=== PATIENT | female | born 1970 | race Caucasian/White ===

== ENCOUNTER → 2020-10-10 10:54 | Outpatient (CLI) | payer OTHER, MEDICAID, SELFPAY ==
[2020-10-10 13:49] LABS: Amphetamine Urine VISTA NEGATIVE (<1000 ng/mL); Barbiturate Urine VISTA POSITIVE (< 200 ng/mL); Benzodiazepine Urine VISTA NEGATIVE (< 200 ng/mL); Cocaine Urine VISTA NEGATIVE (< 300 ng/mL); Ecstacy Urine VISTA POSITIVE (< 500 ng/mL); Methadone Urine VISTA NEGATIVE (< 300 ng/mL); PCP Urine VISTA NEGATIVE (< 25 ng/mL); THC Urine VISTA NEGATIVE (< 50 ng/mL); Vista UDS pH Range 5
== END ==
PROVIDERS: PCP Internal Medicine; Referring Provider Anesthesiology Pain Medicine; Visit Provider Anesthesiology Pain Medicine
DX: F11.20 Opioid dependence, uncomplicated (principal)
CPT/HCPCS: 80307

== ENCOUNTER → 2021-06-19 10:03 | Outpatient (CLI) | payer OTHER, MEDICARE, SELFPAY ==
[2021-06-19 12:02] LABS: Amphetamine Urine VISTA NEGATIVE (<1000 ng/mL); Barbiturate Urine VISTA NEGATIVE (< 200 ng/mL); Benzodiazepine Urine VISTA NEGATIVE (< 200 ng/mL); Cocaine Urine VISTA NEGATIVE (< 300 ng/mL); Ecstacy Urine VISTA NEGATIVE (< 500 ng/mL); Methadone Urine VISTA NEGATIVE (< 300 ng/mL); PCP Urine VISTA NEGATIVE (< 25 ng/mL); THC Urine VISTA NEGATIVE (< 50 ng/mL); Vista UDS pH Range 8
== END ==
LOC: LAB 10:09
PROVIDERS: PCP Family Medicine; Referring Provider Anesthesiology Pain Medicine; Visit Provider Anesthesiology Pain Medicine
DX: M54.16 Radiculopathy, lumbar region (principal); F11.20 Opioid dependence, uncomplicated
CPT/HCPCS: 80307

== ENCOUNTER 2021-08-17 13:00 | Outpatient (CLI) | payer OTHER, MEDICARE, SELFPAY ==
[2021-08-17 14:14] LABS: Amphetamine Urine VISTA NEGATIVE (<1000 ng/mL); Barbiturate Urine VISTA POSITIVE (< 200 ng/mL); Benzodiazepine Urine VISTA NEGATIVE (< 200 ng/mL); Cocaine Urine VISTA NEGATIVE (< 300 ng/mL); Ecstacy Urine VISTA NEGATIVE (< 500 ng/mL); Methadone Urine VISTA NEGATIVE (< 300 ng/mL); PCP Urine VISTA NEGATIVE (< 25 ng/mL); THC Urine VISTA NEGATIVE (< 50 ng/mL); Vista UDS pH Range 7
== END 2021-08-17 23:59 | disposition home or self-care (01) ==
PROVIDERS: PCP Family Medicine; Referring Provider Anesthesiology Pain Medicine; Visit Provider Anesthesiology Pain Medicine
DX: F11.20 Opioid dependence, uncomplicated (principal)
CPT/HCPCS: 80307

== ENCOUNTER → 2022-02-01 | Outpatient (CLI) | payer OTHER, MEDICARE, SELFPAY ==
[2022-02-01 13:08] LABS: Amphetamine Urine VISTA NEGATIVE (<1000 ng/mL); Barbiturate Urine VISTA POSITIVE (< 200 ng/mL); Benzodiazepine Urine VISTA NEGATIVE (< 200 ng/mL); Cocaine Urine VISTA NEGATIVE (< 300 ng/mL); Ecstacy Urine VISTA POSITIVE (< 500 ng/mL); Methadone Urine VISTA NEGATIVE (< 300 ng/mL); PCP Urine VISTA NEGATIVE (< 25 ng/mL); THC Urine VISTA NEGATIVE (< 50 ng/mL); Vista UDS pH Range 6
== END | disposition home or self-care (01) ==
LOC: LAB 11:53
PROVIDERS: PCP Family Medicine; Referring Provider Anesthesiology Pain Medicine; Visit Provider Anesthesiology Pain Medicine
DX: F11.20 Opioid dependence, uncomplicated (principal)
CPT/HCPCS: 80307

== ENCOUNTER 2024-06-02 15:03 | Inpatient (IN) | payer OTHER, MEDICARE, MEDICAID, SELFPAY ==
[2024-06-02] VITALS (8 sets, daily range): BP systolic 92–164; BP diastolic 38–89; PULSE 78–89; RESP 14–18; TEMP 36.4–36.6; O2SAT 95–100; BMI 30.8
--- NOTE | 2024-06-02 15:12 | EKG12_ITS ---
Test Reason : FALL Blood Pressure : */* mmHG Vent. Rate : 74 BPM Atrial Rate : 74 BPM P-R Int : 166 ms QRS Dur : 76 ms QT Int : 378 ms P-R-T Axes : 32 -12 28 degrees QTcB Int : 419 ms Normal sinus rhythm Inferior infarct , age undetermined Possible Anterior infarct , age undetermined Abnormal ECG Confirmed by Onesimo Lujan ([id number]), commissioning editor CESAR LEOS ([id number]) on 06/04/2024 11:03:15 AM Referred By: Confirmed By: Onesimo Lujan
--- NOTE | 2024-06-02 15:15 | CT_ITS ---
STUDY: CT ABDOMEN AND PELVIS WITH CONTRAST REASON FOR EXAM: Female, 54 years old. bleeding from colostomy, passing clots RADIATION DOSAGE (If Supplied By Facility): CTDIvol = ( 17.19 ) mGy, DLP = ( 1260.62 ) mGycm TECHNIQUE: Transaxial images were obtained from the dome of the diaphragm to the symphysis pubis without oral contrast. IV 100mL Isovue-300 was administered. Sagittal and coronal images were reconstructed. Individualized dose optimization techniques were used for this CT. COMPARISON: None. FINDINGS: The visualized lung bases are unremarkable. The visualized portions of the heart are within normal limits. Normal liver. Nonvisualization of the gallbladder. No dilatation of extrahepatic biliary system. Slightly enlarged spleen. Normal pancreas. Normal bilateral adrenal glands. Normal right kidney. Normal left kidney. Normal visualized stomach. Retained contents in the visualized distal esophagus. Normal small intestine. Normal colon. The appendix is not visualized. Normal abdominal aorta. Normal inferior vena cava. Normal retroperitoneum. Ibarra catheter in the urinary bladder. There is a colostomy through the left anterior abdominal wall. There is a skin wound over the sacrum with subcutaneous emphysema since likely related to decubitus ulcer. Skin thickening and subcutaneous edema of the left gluteal region and the proximal left thigh posteriorly. Degenerative vertebral changes. Right SI joint fusion. Bilateral old rib fractures. CT/Abdomen/Pelvis W IV Cont ONLY IMPRESSION: There is a colostomy through the left anterior abdominal wall. There is a skin wound over the sacrum with subcutaneous emphysema since likely related to decubitus ulcer. Skin thickening and subcutaneous edema of the left gluteal region and the proximal left thigh posteriorly. Enlarged spleen. Electronically Signed: Juan Cortes DO at 17:37 EST ,
--- NOTE | 2024-06-02 15:31 | EX.ED.DYSGE1 ---
HPI History of Present Illness Chief Complaint: GI Bleed Narrative Narrative: Patient is a 54-year-old female with past medical history of colostomy, chronic sacral wound, right partial foot amputation, left below-knee amputation who presents to the emergency department the chief complaint of blood coming out of her colostomy. States that yesterday she noted that she was passing clots out of her colostomy site and has been worsening therefore she came here for the valuation management. Patient states that this bright red nature and denies any blood thinning medications. Patient states that she was recently at [facility] and they wanted to admit her for low blood count however they wanted to observe her and she ultimately decided against staying for an observation stay and went home. Patient denies any sick contacts. Patient denies any abdominal pain. [facility] Medical History (Updated 06/02/24 @ 22:[address] Ashu Walters, ) Decubitus ulcer Hypertension Asthma Insomnia Crohn disease Hypothyroid Diabetes Home Medications ?Medication ?Instructions ?Recorded ?Last Taken ?Type Lactobacillus acidophilus 1 1,000 mmu cells PO DAILY 06/02/24 06/01/24 History billion cell capsule acetaminophen 325 mg tablet 650 mg PO Q6H PRN pain 06/02/24 Unknown History adalimumab 40 mg/0.4 mL 40 mg subcut Q14D 06/02/24 05/19/24 History subcutaneous pen kit (Humira(CF) Pen) albuterol sulfate 2.5 mg/0.5 mL 2.5 mg inhalation Q4H PRN 06/02/24 Unknown History solution for nebulization shortness of breath or wheezing albuterol sulfate 90 mcg/actuation 1 puff inhalation Q4H PRN 06/02/24 Unknown History aerosol inhaler shortness of breath or wheezing alprazolam 0.5 mg tablet 0.5 mg PO DAILY 06/02/24 06/01/24 History amitriptyline 100 mg tablet 100 mg PO QHS 06/02/24 06/01/24 History ascorbic acid (vitamin C) 500 mg 500 mg PO DAILY 06/02/24 06/01/24 History tablet (Vitamin C) atorvastatin 80 mg tablet 80 mg PO DAILY 06/02/24 06/01/24 History buprenorphine 10 mcg/hour weekly 1 patch topical TU 06/02/24 05/26/24 History transdermal patch colestipol 1 gram tablet 2 g PO BID 06/02/24 06/01/24 History cyclosporine 0.05 % eye drops in a 1 drp ophthalmic (eye) Q12H 06/02/24 06/01/24 History dropperette (Restasis) epinephrine 0.3 mg/0.3 mL 0.3 mg IM PRN PRN anaphylaxis 06/02/24 Unknown History injection, auto-injector ergocalciferol (vitamin D2) 1,250 1,250 mcg PO TU 06/02/24 05/26/24 History mcg (50,000 unit) capsule escitalopram oxalate 20 mg tablet 20 mg PO DAILY 06/02/24 06/01/24 History famotidine 20 mg tablet 40 mg PO BID 06/02/24 06/01/24 History fluticasone furoate 200 1 ea inhalation DAILY 06/02/24 06/01/24 History mcg-vilanterol 25 mcg/dose inhalation powder (Breo Ellipta) folic acid 1 mg tablet 1 mg PO DAILY 06/02/24 06/01/24 History furosemide 40 mg tablet 40 mg PO DAILY PRN edema 06/02/24 Unknown History ibuprofen 800 mg tablet 800 mg PO TID PRN pain 06/02/24 Unknown History insulin glargine U-300 conc 300 44 unit subcut DAILY 06/02/24 06/01/24 History unit/mL (1.5 mL) subcutaneous pen (Toujeo SoloStar U-300 Insulin) insulin lispro 100 unit/mL 1 sliding scale dose subcut TIDCM 06/02/24 06/01/24 History subcutaneous pen (Humalog KwikPen (U-100) Insulin) levetiracetam 1,000 mg tablet 1,000 mg PO BID 06/02/24 06/01/24 History levothyroxine 200 mcg tablet 200 mcg PO DAILY 06/02/24 06/01/24 History lidocaine 5 % topical patch 1 patch topical DAILY 06/02/24 06/01/24 History loperamide 2 mg tablet 2 mg PO TID PRN loose stool 06/02/24 Unknown History magnesium oxide 400 mg (241.3 mg 400 mg PO DAILY 06/02/24 06/01/24 History magnesium) tablet metformin 500 mg tablet,extended 500 mg PO BID 06/02/24 06/01/24 History release 24 hr nitroglycerin 0.4 mg sublingual 0.4 mg sublingual Q5M PRN chest 06/02/24 Unknown History tablet pain nystatin 100,000 unit/gram topical 1 applic topical TID 06/02/24 06/01/24 History powder (Nystop) pantoprazole 40 mg tablet,delayed 40 mg PO BID 06/02/24 06/01/24 History release pregabalin 225 mg capsule 225 mg PO TID 06/02/24 06/01/24 History primidone 50 mg tablet 50 mg PO BID 06/02/24 06/01/24 History promethazine 25 mg tablet 25 mg PO Q8H PRN nausea and 06/02/24 Unknown History vomiting propranolol 10 mg tablet 10 mg PO DAILY 06/02/24 06/01/24 History quetiapine 100 mg tablet 100 - 200 mg PO QHS 06/02/24 06/01/24 History ropinirole 4 mg tablet 4 mg PO QHS 06/02/24 06/01/24 History scopolamine base 1 mg over 3 days 1 patch topical Q3D 06/02/24 05/30/24 History transdermal patch semaglutide 2 mg/dose (8 mg/3 mL) 2 mg subcut TU 06/02/24 05/26/24 History subcutaneous pen injector (Ozempic) sucralfate 1 gram tablet 1 g PO TID 06/02/24 06/01/24 History sumatriptan succinate 100 mg tablet 100 mg PO UD 06/02/24 Unknown History tizanidine 4 mg tablet 4 mg PO 4X/DAY PRN muscle 06/02/24 Unknown History spasticity topiramate 50 mg tablet (Topamax) 50 mg PO BID 06/02/24 06/01/24 History Allergy/AdvReac Type Severity Reaction Status Date / Time daptomycin Allergy Severe Anaphylaxis Verified 06/02/24 15:10 Cephalosporins Allergy Intermediate Rash Verified 06/02/24 15:10 bee venom protein (honey Allergy Rash Verified 06/02/24 15:10 bee) (bee sting) Social History Smoking Status: Never smoker ROS ROS ED ROS Narrative Constitutional: Denies any fevers, chills, headaches, lightheadedness, dizziness Cardiovascular: Denies chest pain or palpitations Respiratory: Denies cough or wheezing shortness of breath Abdomen: Complains of bleeding coming from her colostomy site as noted above denies nausea vomiting and states that otherwise she is having adequate output out of her colostomy site : Complains of decreased urine output into Ibarra catheter Neurological: Denies numbness, weakness or tingling Musculoskeletal: Denies back pain Skin: Denies rashes or lesions EXAM Physical Exam Narrative Exam Narrative: General: Patient lying in bed rest comfortably did not appear to be acute distress Head: Atraumatic, normocephalic Eyes: PERRL bilateral, EOMI bilateral, no conjunctival injection noted Neck: Soft, supple, trachea midline Cardiovascular: Regular rate and rhythm no murmurs gallops rubs noted Respiratory: Clear to auscultation bilaterally no rales rhonchi or wheeze noted Abdomen: Soft, nondistended, nontender to palpation, colostomy site appears pink and moist, blood noted in the colostomy bag Sacrum: Patient has chronic sacral wound noted with foul smell coming from this no active drainage noted. Extremities: +5/5 strength noted in the bilateral upper extremities, patient has above-knee amputation on the left and a partial imitation of her right foot. Neurological: Patient following commands knew that she was at [facility] years 2023 Skin: Warm, dry, chronic sacral wound noted Const Vital Signs: 06/02/24 15:04 06/02/24 15:05 06/02/24 17:04 Temperature 97.5 F L Temperature Source Oral Pulse Rate 88 78 78 Respiratory Rate 15 18 16 Blood Pressure 119/84 H 119/71 164/76 H Blood Pressure Mean 95 87 105 Pulse Ox 98 100 98 Oxygen Delivery Method Room Air Room Air Room Air 06/02/24 19:00 06/02/24 19:35 06/02/24 21:00 Temperature 98 F Temperature Source Pulse Rate 82 82 83 Respiratory Rate 16 16 16 Blood Pressure 122/89 H 122/89 H 116/38 L Blood Pressure Mean 100 100 64 Pulse Ox 99 99 95 Oxygen Delivery Method Room Air Room Air MDM MDM MDM Narrative Medical decision making narrative: Patient is a 54-year-old female who presents to the emergency department with a chief complaint of bleeding coming from her colostomy site. Patient will have a workup performed here on the differential diagnose includes but not limited to GI bleed, ischemic colitis although do feel this less likely as she has no abdominal pain associated with this, colitis. Once workup is obtained reviewed she will be reevaluated. Patient CBC reviewed and showed no evidence leukocytosis white blood count normal 8.5, hemoglobin 7.7, platelet count was noted be 378. Patient sodium normal at 143, potassium was 3.4, creatinine normal at 0.94. Patient lactic acid was noted to be 2.2 with a repeat lactic of 2.1. Patient's AST and ALT were 39 and 30 respectively. Patient's urinalysis reviewed and showed 500 leukocyte esterase 50-100 white cells and 2+ bacteria this will be sent for culture she is chronically have a Ibarra catheter will treat until culture results return. Patient's CT abdomen pelvis with IV contrast reviewed showed colostomy through the left anterior abdominal wall. Skin wound over the sacrum with subcutaneous emphysema since likely related decubitus ulcer. Skin thickening and subcutaneous edema in the left gluteal region and proximal left thigh posteriorly. Large spleen. Patient's EKG reviewed and independently turbid by myself which showed sinus rhythm rate of 74 bpm. At this point time given the patient's persistent bleeding abdominal pain through her colostomy site do believe she will warrant admission will discuss case with gastroenterology and general surgery. Called and discussed case Dr. Fuentes who states that he is happy to see the patient in consult. I called and spoke with Dr. Duran general surgery and states that he would recommend transfer as if she needs revision of her colostomy site given her history of Crohn's she would likely need colorectal surgery. I called and discussed case with [facility] as the patient preferred to go there and the hospitalist was in agreement with taking her however if the general surgeon on-call there was comfortable with taking the patient as well. I spoke with Dr. Barroso hospitalist and then I spoke with Dr. Garcia general surgery who states that if this would become a surgical issue she does not want to do colorectal surgery and is requesting transfer to [facility] Instead. I called and discussed case with [facility] Hospitalist Dr. Bahena who accept the patient for transfer. Transfer line did notify me that the patient will not get a bed tonight therefore the patient case will be discussed with hospitalist for admission here and then transfer once a bed is available. Dr. Dong states that he wants patient be kept in the ER for 6 hours prior to admission to the hospital. We did notify him that she will not be getting a hospital bed tonight and questionably not tomorrow either. Given the patient does have a foul smell coming from her wound from her sacrum we will give her antibiotics vancomycin and Zosyn is also covered her urine. Patient case will be signed out to oncoming provider see their note for ultimate details on admission versus bed availability transferred to [facility]. Lab Data Labs: Laboratory Results - last 24 hr 06/02/24 06/02/24 06/02/24 15:32 17:40 20:35 WBC 8.5 RBC 3.49 L Hgb 7.7 L Hct 26.8 L MCV 76.8 L MCH 22.1 L MCHC 28.7 L RDW Std Deviation 44.6 H RDW Coeff of Gerardo 16.4 H Plt Count 378 MPV 9.2 Immature Gran % (Auto) 0.800 Neut % (Auto) 64.5 Lymph % (Auto) 26.4 [place] % (Auto) 5.8 Eos % (Auto) 2.0 Baso % (Auto) 0.5 Absolute Neuts (auto) 5.5 Absolute Lymphs (auto) 2.25 Nucleated RBC % 0 Sodium 143 Potassium 3.4 L Chloride 114 H Carbon Dioxide 23.0 Anion Gap 6 BUN 11 Creatinine 0.94 Estim Creat Clear Calc 77.54 Est GFR (MDRD) Af Amer 80 Est GFR (MDRD) Non-Af 66 BUN/Creatinine Ratio 11.7 Glucose 89 Lactic Acid 2.2 H* 2.1 H* Calcium 8.8 Total Bilirubin 0.20 AST 39 H ALT 30 Alkaline Phosphatase 320 H Total Protein 7.5 Albumin 2.1 L Globulin 5.4 H Albumin/Globulin Ratio 0.4 L Urine Color Yellow Urine Clarity Cloudy Urine pH 6.5 Ur Specific [place] 1.010 Urine Protein 30 H Urine Glucose (UA) Normal Urine Ketones Negative Urine Occult Blood 50 H Urine Nitrite Negative Urine Bilirubin Negative Urine Urobilinogen Normal Ur Leukocyte Esterase 500 H Urine RBC 5-10 SEEN Urine WBC 50-100 SEEN Ur Squamous Epith Cells 0-5 SEEN Urine Bacteria 2+ Urine Mucus 0 SEEN Blood Type B POSITIVE Antibody Screen NEGATIVE Radiography Diagnostic Testing: Clinical Impression(s) from Imaging Studies Abdomen/Pelvis CT 06/02/24 15:15 IMPRESSION: There is a colostomy through the left anterior abdominal wall. There is a skin wound over the sacrum with subcutaneous emphysema since likely related to decubitus ulcer. Skin thickening and subcutaneous edema of the left gluteal region and the proximal left thigh posteriorly. Enlarged spleen. Electronically Signed: Juanjeffrey Cortes DO at 17:37 EST , Discharge Plan Triage Chief Complaint: GI Bleed Other Complaint: Wound Check ED Provider: Ashu Walters Dx/Rx/DC Orders Clinical Impression: GI (gastrointestinal bleed), Decubitus ulcer of sacral area, UTI (urinary tract infection) Prescriptions: No Action quetiapine 100 mg tablet 100 - 200 mg PO QHS alprazolam 0.5 mg tablet 0.5 mg PO DAILY escitalopram oxalate 20 mg tablet 20 mg PO DAILY propranolol 10 mg tablet 10 mg PO DAILY Ozempic 2 mg/dose (8 mg/3 mL) pen injector 2 mg subcut TU amitriptyline 100 mg tablet 100 mg PO QHS colestipol 1 gram tablet 2 g PO BID buprenorphine 10 mcg/hour patch weekly 1 patch topical TU ibuprofen 800 mg tablet 800 mg PO TID PRN (Reason: pain) lidocaine 5 % adhesive patch,medicated 1 patch topical DAILY pregabalin 225 mg capsule 225 mg PO TID tizanidine 4 mg tablet 4 mg PO 4X/DAY PRN (Reason: muscle spasticity) insulin glargine U-300 conc [Toujeo SoloStar U-300 Insulin] 300 unit/mL (1.5 mL) insulin pen 44 unit subcut DAILY insulin lispro [Humalog KwikPen Insulin] 100 unit/mL insulin pen 1 sliding scale dose subcut TIDCM Protocol: 6. Sliding Scale Insulin Custom Condition: mg/dl range Dose/Route: Number of Units Condition: 151-200 Dose/Route: 2 Condition: 201-250 Dose/Route: 4 Condition: 251-300 Dose/Route: 6 Condition: 301-350 Dose/Route: 8 Condition: 351-400 Dose/Route: 10 Protocol Text: Custom Sliding Scale Rx Instructions: TAKE 12 UNITS WITH BREAKFAST, 10 UNITS WITH LUNCH, AND 12 UNITS WITH DINNER PLUS SLIDING SCALE. MAX DAILY DOSE 60 UNITS Lactobacillus acidophilus 1 billion cell capsule 1,000 mmu cells PO DAILY primidone 50 mg tablet 50 mg PO BID famotidine 20 mg tablet 40 mg PO BID pantoprazole 40 mg tablet,delayed release (DR/EC) 40 mg PO BID scopolamine base 1 mg over 3 days patch 3 day 1 patch topical Q3D atorvastatin 80 mg tablet 80 mg PO DAILY albuterol sulfate 90 mcg/actuation HFA aerosol inhaler 1 puff inhalation Q4H PRN (Reason: shortness of breath or wheezing) ropinirole 4 mg tablet 4 mg PO QHS Humira(CF) Pen 40 mg/0.4 mL pen injector kit 40 mg subcut Q14D ascorbic acid (vitamin C) [Vitamin C] 500 mg tablet 500 mg PO DAILY epinephrine 0.3 mg/0.3 mL auto-injector 0.3 mg IM PRN PRN (Reason: anaphylaxis) fluticasone furoate-vilanterol [Breo Ellipta] 200-25 mcg/dose blister with device 1 ea inhalation DAILY ergocalciferol (vitamin D2) 1,250 mcg (50,000 unit) capsule 1,250 mcg PO TU promethazine 25 mg tablet 25 mg PO Q8H PRN (Reason: nausea and vomiting) levothyroxine 200 mcg tablet 200 mcg PO DAILY nystatin [Nystop] 100,000 unit/gram powder 1 applic topical TID levetiracetam 1,000 mg tablet 1,000 mg PO BID acetaminophen 325 mg tablet 650 mg PO Q6H PRN (Reason: pain) folic acid 1 mg tablet 1 mg PO DAILY loperamide 2 mg tablet 2 mg PO TID PRN (Reason: loose stool) sumatriptan succinate 100 mg tablet 100 mg PO UD sucralfate 1 gram tablet 1 g PO TID magnesium oxide 400 mg (241.3 mg magnesium) tablet 400 mg PO DAILY metformin 500 mg tablet extended release 24 hr 500 mg PO BID cyclosporine [Restasis] 0.05 % dropperette 1 drp ophthalmic (eye) Q12H Patient Comments: [NO ORIGINAL SIG] Rx Instructions: BOTH EYES nitroglycerin 0.4 mg tablet, sublingual 0.4 mg sublingual Q5M PRN (Reason: chest pain) Rx Instructions: do not exceed 3 doses per episode topiramate [Topamax] 50 mg tablet 50 mg PO BID furosemide 40 mg tablet 40 mg PO DAILY PRN (Reason: edema) albuterol sulfate 2.5 mg/0.5 mL solution for nebulization 2.5 mg inhalation Q4H PRN (Reason: shortness of breath or wheezing) Primary Care Provider: Jomar Kellogg Referrals: Jomar Kellogg MD [Primary Care Provider] - Print Language: Gambian
[2024-06-02] MEDS: 0.9% Normal Saline (1000mL) 1,000 ML 999 ML IV ×2 (15:41→15:43)
[2024-06-02] MEDS: Ondansetron 4 MG/2 ML Vial IV ×2 (15:43→20:12)
[2024-06-02] MEDS: Morphine 4 MG/ML Syringe IV ×2 (15:43→17:34)
[2024-06-02 15:51] LABS: Absolute Lymphocyte Count 2.25 X10^3/uL (0.83-4.51); Absolute Neutrophil Count 5.5 X10^3/uL (2.0-7.7); Basophil# 0.04 X10^3/uL; Basophil% 0.5 % (0-1); Eosinophil# 0.17 X10^3/uL; Hematocrit 26.8 % (37-47); Hemoglobin 7.7 g/dL (12.0-15.0); Lymphocyte # 2.25 X10^3/ul (0.83-4.51); Lymphocyte % 26.4 % (19-41); Mean Corp Hgb Conc 28.7 g/dL (32-36); Mean Corpuscular Hgb 22.1 pg (27.0-32.0); Mean Corpuscular Volume 76.8 fL (81-99); Mean Platelet Vol. 9.2 fl (6.2-12.0); Monocyte# 0.49 X10^3/uL; Monocyte% 5.8 % (0-10); NRBC Flagged by Analyzer 0 % (0-5); Neutrophil % 64.5 % (47-70); Platelet Count 378 K/mm3 (150-450); RBC Distribution Width CV 16.4 % (11.6-14.6); RBC Distribution Width SD 44.6 fl (35.1-43.9); Red Blood Count 3.49 M/mm3 (4.2-5.4); White Blood Count 8.5 K/mm3 (4.4-11.0)
[2024-06-02 16:31] LABS: ALB/GLOB Ratio 0.4 RATIO (0.9-2.4); AST(SGOT) 39 U/L (15-37); Alanine Aminotransfer ALT/SGPT 30 U/L (13-56); Albumin, Serum 2.1 g/dL (3.2-5.0); Alkaline Phosphatase 320 U/L (45-117); Anion Gap 6 (5-15); BUN 11 mg/dL (7-18); BUN/Creat Ratio 11.7 RATIO (10-20); Calcium,Total 8.8 mg/dL (8.5-10.1); Chloride 114 mmol/L (98-107); Creatinine, Serum 0.94 mg/dL (0.55-1.02); EST Glomerular Filtration Rate 66 mL/min (>60); Est Glom Filt Rate - Afr Amer 80 mL/min (>60); Estimated Creatinine Clearance 77.54 ml/min; Globulin 5.4 g/dL (2.2-4.2); Glucose 89 mg/dL (74-106); Potassium 3.4 mmol/L (3.5-5.1); Protein, Total 7.5 g/dL (6.4-8.2); Sodium Level 143 mmol/L (136-145)
[2024-06-02 16:32] LABS: Lactic Acid 2.2 mmol/L (0.4-1.9)
[2024-06-02 17:44] LABS: Mucous, Urine 0 SEEN /hpf (<or=2+)
[2024-06-02 18:19] LABS: Color, Urine Yellow (Yellow); Glucose, Dipstick Normal (Normal); Ketone-Dipstick Negative (Negative); Leukocyte Esterase-Dipstick 500 /ul (Negative); Nitrite-Dipstick Negative (Negative); Occult Blood-Urine 50 /ul (Negative); Protein-Dipstick 30 mg/dl (Negative); Urine Bilirubin Dipstick Negative (Negative); Urine Clarity Cloudy (Clear); Urine Urobilinogen Normal (Normal); Urine pH 6.5 (5.0 - 8.0)
[2024-06-02 19:00] LABS: Bacteria 2+ /hpf (None Seen); Red Blood Cells-Urine 5-10 SEEN /hpf (0-5); Squamous Epithelial Cells - UA 0-5 SEEN /hpf (5-10); White Blood Cells 50-100 SEEN /hpf (0-5)
[2024-06-02] MEDS: Dicyclomine 10 MG Capsule 20 MG PO (19:27)
[2024-06-02] MEDS: Pantoprazole Sodium 40 MG in 0.9% Normal Saline (100mL MB+) 100 ML 330 MG IV (19:28)
[2024-06-02 19:42] LABS: Reflex Lactate? Y
[2024-06-02] MEDS: HYDROmorphone 0.5 MG/0.5 ML SYRINGE IV (20:12)
[2024-06-02 21:20] LABS: Lactic Acid 2.1 mmol/L (0.4-1.9)
--- NOTE | 2024-06-02 22:45 | HP.PCM.HOS_ITS ---
[facility] General Date of Admission: 06/02/24 Date of Service: 06/02/24 Chief Complaint: GI Bleed. [facility] Narrative EAMON BLANCA, is a 54 F with a past medical history of essential hypertension, hyperlipidemia; on colestipol and atorvastatin, hypothyroidism, obesity; with a BMI of 30.8 this admission, DM-2; of unknown control on metformin and semaglutide plus insulin glargine 44 U sq. daily, diabetic neuropathy; on pregabalin, history of Crohn's disease; on adalimumab, history of colostomy, history of severe GERD; on pantoprazole BID and Pepcid 40 mg PO BID plus sucralfate, history of seizure disorder; on levetiracetam, topiramate and primidone, RLS; on quetiapine and ropinirole, history of asthma; on fluticasone and prn albuterol, chronic sacral wound, history of partial amputation of the Right foot, history of Left BKA, history of muscle spasms; on prn tizanidine, history migraine headaches; on prn sumatriptan, chronic dry eyes; on Restasis, depression with anxiety; on escitalopram, amitriptyline and prn alprazolam, listed allergy to daptomycin (anaphylaxis), listed allergy to cephalosporins (rash), listed allergy to bee venom protein (rash) and OA; with chronic pain on buprenorphine patch and ibuprofen 800 mg PO TID prn who presented to [facility] ER complaining of GI bleed. Ms. Blanca reports her symptoms began approximately 1 day prior to admission with blood coming out of her colostomy. She states that yesterday she noted she was passing clots from her colostomy site that have been worsening since that time so she came into the ER for further evaluation and treatment. She states the blood is bright red in nature and denies being on any blood thinning medications or anticoagulants. She denies associated fever, chills, nausea, vomiting or abdominal pain. The ER physician spoke with the stationary engineer supervisor and general surgeon on-call who recommended transfer to tertiary care center if she would need revision of her colostomy given her history of Crohn's disease she would likely need a colorectal surgeon. In the ER her CT scan of the abdomen pelvis revealed colostomy through the left anterior abdominal wall with skin wound over the sacrum with subcutaneous emphysema likely related to decubitus ulcer and skin thickening and subcutaneous edema of the Left gluteal region and left proximal thigh posteriorly along with enlarged spleen with no other acute pathologic changes noted. Due to limited bed availability patient cannot be transferred immediately and has been waiting in the ER over 6 hours and that is hospitals policy to admit patients who will be awaiting prolonged transfer will be admitted to the hospitalist service so they can be cared for until such time transfer becomes available. In the ER she was noted to have a hemoglobin of 7.7 g/dL with an elevated lactic acid of 2.1 mmol/L and mild hypokalemia of 3.4 mmol/L present on admission in addition to UA grossly positive for acute cystitis; with microscopic hematuria. She was then empirically started on IV vancomycin and IV Zosyn along with IV Protonix drip and multiple doses of IV morphine with 1 L normal saline fluid bolus. She was then admitted to the PCU for ongoing care for stay that is expected to extend beyond 2 midnights. [facility] Medical History (Updated 06/03/24 @ 00:[address] Emmanuel Graff, DO) Decubitus ulcer Hypertension Asthma Insomnia Crohn disease Hypothyroid Diabetes Home Medications ?Medication ?Instructions ?Recorded ?Last Taken ?Type Lactobacillus acidophilus 1 1,000 mmu cells PO DAILY 06/02/24 06/01/24 History billion cell capsule acetaminophen 325 mg tablet 650 mg PO Q6H PRN pain 06/02/24 Unknown History adalimumab 40 mg/0.4 mL 40 mg subcut Q14D 06/02/24 05/19/24 History subcutaneous pen kit (Humira(CF) Pen) albuterol sulfate 2.5 mg/0.5 mL 2.5 mg inhalation Q4H PRN 06/02/24 Unknown History solution for nebulization shortness of breath or wheezing albuterol sulfate 90 mcg/actuation 1 puff inhalation Q4H PRN 06/02/24 Unknown History aerosol inhaler shortness of breath or wheezing alprazolam 0.5 mg tablet 0.5 mg PO DAILY 06/02/24 06/01/24 History amitriptyline 100 mg tablet 100 mg PO QHS 06/02/24 06/01/24 History ascorbic acid (vitamin C) 500 mg 500 mg PO DAILY 06/02/24 06/01/24 History tablet (Vitamin C) atorvastatin 80 mg tablet 80 mg PO DAILY 06/02/24 06/01/24 History buprenorphine 10 mcg/hour weekly 1 patch topical TU 06/02/24 05/26/24 History transdermal patch colestipol 1 gram tablet 2 g PO BID 06/02/24 06/01/24 History cyclosporine 0.05 % eye drops in a 1 drp ophthalmic (eye) Q12H 06/02/24 06/01/24 History dropperette (Restasis) epinephrine 0.3 mg/0.3 mL 0.3 mg IM PRN PRN anaphylaxis 06/02/24 Unknown History injection, auto-injector ergocalciferol (vitamin D2) 1,250 1,250 mcg PO TU 06/02/24 05/26/24 History mcg (50,000 unit) capsule escitalopram oxalate 20 mg tablet 20 mg PO DAILY 06/02/24 06/01/24 History famotidine 20 mg tablet 40 mg PO BID 06/02/24 06/01/24 History fluticasone furoate 200 1 ea inhalation DAILY 06/02/24 06/01/24 History mcg-vilanterol 25 mcg/dose inhalation powder (Breo Ellipta) folic acid 1 mg tablet 1 mg PO DAILY 06/02/24 06/01/24 History furosemide 40 mg tablet 40 mg PO DAILY PRN edema 06/02/24 Unknown History ibuprofen 800 mg tablet 800 mg PO TID PRN pain 06/02/24 Unknown History insulin glargine U-300 conc 300 44 unit subcut DAILY 06/02/24 06/01/24 History unit/mL (1.5 mL) subcutaneous pen (Toujeo SoloStar U-300 Insulin) insulin lispro 100 unit/mL 1 sliding scale dose subcut TIDCM 06/02/24 06/01/24 History subcutaneous pen (Humalog KwikPen (U-100) Insulin) levetiracetam 1,000 mg tablet 1,000 mg PO BID 06/02/24 06/01/24 History levothyroxine 200 mcg tablet 200 mcg PO DAILY 06/02/24 06/01/24 History lidocaine 5 % topical patch 1 patch topical DAILY 06/02/24 06/01/24 History loperamide 2 mg tablet 2 mg PO TID PRN loose stool 06/02/24 Unknown History magnesium oxide 400 mg (241.3 mg 400 mg PO DAILY 06/02/24 06/01/24 History magnesium) tablet metformin 500 mg tablet,extended 500 mg PO BID 06/02/24 06/01/24 History release 24 hr nitroglycerin 0.4 mg sublingual 0.4 mg sublingual Q5M PRN chest 06/02/24 Unknown History tablet pain nystatin 100,000 unit/gram topical 1 applic topical TID 06/02/24 06/01/24 History powder (Nystop) pantoprazole 40 mg tablet,delayed 40 mg PO BID 06/02/24 06/01/24 History release pregabalin 225 mg capsule 225 mg PO TID 06/02/24 06/01/24 History primidone 50 mg tablet 50 mg PO BID 06/02/24 06/01/24 History promethazine 25 mg tablet 25 mg PO Q8H PRN nausea and 06/02/24 Unknown History vomiting propranolol 10 mg tablet 10 mg PO DAILY 06/02/24 06/01/24 History quetiapine 100 mg tablet 100 - 200 mg PO QHS 06/02/24 06/01/24 History ropinirole 4 mg tablet 4 mg PO QHS 06/02/24 06/01/24 History scopolamine base 1 mg over 3 days 1 patch topical Q3D 06/02/24 05/30/24 History transdermal patch semaglutide 2 mg/dose (8 mg/3 mL) 2 mg subcut TU 06/02/24 05/26/24 History subcutaneous pen injector (Ozempic) sucralfate 1 gram tablet 1 g PO TID 06/02/24 06/01/24 History sumatriptan succinate 100 mg tablet 100 mg PO UD 06/02/24 Unknown History tizanidine 4 mg tablet 4 mg PO 4X/DAY PRN muscle 06/02/24 Unknown History spasticity topiramate 50 mg tablet (Topamax) 50 mg PO BID 06/02/24 06/01/24 History Allergy/AdvReac Type Severity Reaction Status Date / Time daptomycin Allergy Severe Anaphylaxis Verified 06/02/24 15:10 Cephalosporins Allergy Intermediate Rash Verified 06/02/24 15:10 bee venom protein (honey Allergy Rash Verified 06/02/24 15:10 bee) (bee sting) Social History Smoking Status: Never smoker ROS ROS Narrative Review of Systems: Constitutional: Patient denies fever or chills. Eyes: Patient denies changes in vision or discharge from eyes. ENT: Patient denies runny nose, sore throat or ear pain. Resp: Patient denies shortness of breath or cough. CV: Patient denies chest pain, palpitations or heart racing. GI: Patient admits to bleeding from her colostomy site with bright red blood and clots as per HPI. She denies nausea or vomiting and is otherwise having normal output. : Patient complains of decreased urinary output and Ibarra catheter. MSK: Patient denies arthralgias or myalgias but she does admit to chronic pain. Skin: Patient has chronic sacral decubitus wound. Psych: Patient denies symptoms of uncontrolled depression or anxiety. Neuro: Patient denies headache, paresthesias or focal neurologic deficits. Allergy: Patient denies lip swelling, tongue swelling or urticaria. Hematology: Patient admits to bleeding from her colostomy site as noted above. Endocrinology: Patient denies polyuria, polydipsia or polyphagia. 14 point review of systems otherwise negative except for positives noted above in HPI. Vital Signs Vital Signs Vital Signs: 06/02/24 15:04 06/02/24 15:05 06/02/24 17:04 Temperature 97.5 F L Temperature Source Oral Pulse Rate 88 78 78 Respiratory Rate 15 18 16 Blood Pressure 119/84 H 119/71 164/76 H Blood Pressure Mean 95 87 105 Pulse Ox 98 100 98 Oxygen Delivery Method Room Air Room Air Room Air 06/02/24 19:00 06/02/24 19:35 06/02/24 21:00 Temperature 98 F Temperature Source Pulse Rate 82 82 83 Respiratory Rate 16 16 16 Blood Pressure 122/89 H 122/89 H 116/38 L Blood Pressure Mean 100 100 64 Pulse Ox 99 99 95 Oxygen Delivery Method Room Air Room Air Weight Weight: 196 lb 10.437 oz Body Mass Index (BMI) 30.8 Physical Exam Const alert, oriented x3 and no apparent distress Constitutional Narrative: Patient is obese and appears chronically ill. General Appearance: cooperative HEENT normocephalic, head/scalp atraumatic, hearing grossly normal bilaterally and moist oral mucous membranes Eyes PERRL and EOMs intact bilaterally Neck no lymphadenopathy and supple Resp normal respiratory effort, no retractions, no use of accessory muscles and clear to auscultation bilaterally Cardio regular rate and regular rhythm GI normal to inspection, nondistended, normoactive bowel sounds, soft to palpation, non-tender and non-distended GI Narrative: Blood noted in colostomy bag with colostomy site appearing pink and moist and nontender to palpation. 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 Skin Skin Narrative: Patient has a chronic sacral wound with foul smell but no active drainage coming from site at this time. Neuro oriented x3, CN's II-XII intact bilaterally, moves all extremities and no focal motor deficits Sensorium / Orientation: awake, alert, oriented to person, oriented to place and oriented to time Speech: speech normal Psych affect normal Results Medical Records Data Attestation: I reviewed the patient's medical records Lab / Micro Data Attestation: I reviewed the patient's lab results. 06/02/24 15:32 06/02/24 15:32 Labs: Laboratory Results - last 24 hr 06/02/24 15:32: WBC 8.5, RBC 3.49 L, Hgb 7.7 L, Hct 26.8 L, MCV 76.8 L, MCH 22.1 L, MCHC 28.7 L, RDW Std Deviation 44.6 H, RDW Coeff of Gerardo 16.4 H, Plt Count 378, MPV 9.2, Immature Gran % (Auto) 0.800, Neut % (Auto) 64.5, Lymph % (Auto) 26.4, [place] % (Auto) 5.8, Eos % (Auto) 2.0, Baso % (Auto) 0.5, Absolute Neuts (auto) 5.5, Absolute Lymphs (auto) 2.25, Nucleated RBC % 0, Sodium 143, P otassium 3.4 L, Chloride 114 H, Carbon Dioxide 23.0, Anion Gap 6, BUN 11, Creatinine 0.94, Estim Creat Clear Calc 77.54, Est GFR (MDRD) Af Amer 80, Est GFR (MDRD) Non-Af 66, BUN/Creatinine Ratio 11.7, Glucose 89, Lactic Acid 2.2 H*, Calcium 8.8, Total Bilirubin 0.20, AST 39 H, ALT 30, Alkaline Phosphatase 320 H, Total Protein 7.5, Albumin 2.1 L, Globulin 5.4 H, Albumin/Globulin Ratio 0.4 L, Blood Type B POSITIVE, Antibody Screen NEGATIVE 06/02/24 17:40: Urine Color Yellow, Urine Clarity Cloudy, Urine pH 6.5, Ur Specific [employer] 1.010, Urine Protein 30 H, Urine Glucose (UA) Normal, Urine Ketones Negative, Urine Occult Blood 50 H, Urine Nitrite Negative, Urine Bilirubin Negative, Urine Urobilinogen Normal, Ur Leukocyte Esterase 500 H, Urine RBC 5-10 SEEN, Urine WBC 50-100 SEEN, Ur Squamous Epith Cells 0-5 SEEN, Urine Bacteria 2+, Urine Mucus 0 SEEN 06/02/24 20:35: Lactic Acid 2.1 H* Imaging Radiology Impression Abdomen/Pelvis CT 06/02/24 15:15 IMPRESSION: There is a colostomy through the left anterior abdominal wall. There is a skin wound over the sacrum with subcutaneous emphysema since likely related to decubitus ulcer. Skin thickening and subcutaneous edema of the left gluteal region and the proximal left thigh posteriorly. Enlarged spleen. Electronically Signed: Juan Cortes DO at 17:37 EST Reading Location ID and State: [facility] / [place] Tel [phone], Service support , Assessment & Plan Assessment/Plan (1) GI (gastrointestinal bleed): QUALIFIERS: GI bleed type/associated pathology: unspecified gastrointestinal hemorrhage type Qualified Code(s): K92.2 - Gastrointestinal hemorrhage, unspecified (2) Crohn disease: QUALIFIERS: Digestive disease complication type: unspecified complication Gastrointestinal tract location: unspecified location Qualified Code(s): K50.919 - Crohn's disease, unspecified, with unspecified complications (3) Acute cystitis with hematuria: (4) Decubitus ulcer of sacral area: QUALIFIERS: Pressure injury stage: unspecified pressure injury stage Qualified Code(s): L89.159 - Pressure ulcer of sacral region, unspecified stage (5) Lactic acidosis: (6) Hypokalemia: (7) DM type 2 causing complication: (8) Obesity (BMI 30.0-34.9): PLAN: Plan 1. GI bleed with bright red blood coming from colostomy site with hemoglobin of 7.7 g/dL present on admission in the setting of known Crohn's disease and severe GERD; on pantoprazole BID and Pepcid 40 mg PO BID plus sucralfate with suspected adverse drug reaction to high-dose as needed ibuprofen - Admit to PCU. Transfuse blood for hemoglobin < 7g/dL. Continue IV Protonix drip begun in ER. Patient should be transferred to tertiary care center as soon as a bed becomes available with patient reluctantly admitted to the hospitalist service. 2. UA grossly positive for Acute Cystitis; with microscopic hematuria complicating #1 - Continue IV Vancomycin and IV Zosyn begun in the ER and await culture and sensitivity data. 3. Chronic sacral decubitus wound with foul-smelling but no active drainage at this time compounding #1 & #2 - Patient on broad-spectrum antibiotics for #2. Wound RN to consult on-rounds in the AM with help appreciated in advance. 4. Lactic acidosis of 2.1 mmol/L present on admission arising from #1 - #3 - Treat supportively as outlined above and serialize lactate to follow trend. 5. Hypokalemia of 3.4 mmol/L present on admission adding to the medical complexity of #1 - #4 - Give supplemental IV KCl and then recheck level in the AM to ensure improvement. 6. DM-2; of unknown control on metformin and semaglutide plus insulin glargine 44 U sq. daily plus diabetic neuropathy; on pregabalin adding to the burden of disease outlined from #1 - #5 - Keep strict NPO. FSBS q. 6 hours plus lowest intensity SSI. Decrease glargine insulin to 14 units daily. 7. Essential hypertension - Hold scheduled antihypertensives in light of #1. 8. Hyperlipidemia; on colestipol and atorvastatin - Consider restarting these agents once patient is cleared for oral intake. 9. Hypothyroidism - Restart thyroid hormone replacement as soon as possible. 10. Obesity; with a BMI of 30.8 this admission - Weight loss will be recommended. Check TSH. This complicates her case and may hamper recovery. 11. History of seizure disorder; on levetiracetam, topiramate and primidone - Resume levetiracetam IV plus give as needed IV Ativan for breakthrough seizure activity. Restart topiramate and primidone as soon as patient can tolerate oral intake. 12. RLS; on quetiapine and ropinirole - Noted. These agents will be restarted when patient can tolerate oral intake. 13. History of asthma; on fluticasone and prn albuterol - Stable with no evidence of acute flare at this time. 14. History of partial amputation of the Right foot - Stable. 15. History of Left BKA - Stable. 16. History of muscle spasms; on prn tizanidine - Noted. 17. History migraine headaches; on prn sumatriptan - Hold triptans for now. 18. Chronic dry eyes; on Restasis - Continue Restasis as before. 19. Depression with anxiety; on escitalopram, amitriptyline and prn alprazolam - Restart these agents when patient is able to do so. 20. Listed allergy to daptomycin (anaphylaxis) - Noted. 21. Listed allergy to cephalosporins (rash) - Noted with patient tolerating IV Zosyn administered in ER. 22. Listed allergy to bee venom protein (rash) - Noted. 23. OA; with chronic pain on buprenorphine patch and ibuprofen 800 mg PO TID prn - Noted. Continue Buprenex patch but stop ibuprofen in light of #1 24. DVT prophylaxis - SCD's only in light of active hemorrhage outlined in #1. Total time: Approximately (but not less than) 75 minutes. Charges/Coding Visit Charges Inpatient E&M: 20441 Init Hosp L3
[2024-06-02] MEDS: Piperacil/Tazobactam 3.375 GM in 0.9% Normal Saline (50mL MB+) 50 ML IV (22:59)
[2024-06-02] MEDS: Vancomycin HCl 1,250 MG in 0.9% Normal Saline (250mL Bag) 250 ML 167 MG IV (23:56)
[2024-06-03] VITALS (11 sets, daily range): BP systolic 103–150; BP diastolic 55–84; PULSE 73–89; RESP 16–18; TEMP 35.4–37; O2SAT 94–100; BMI 29.0
--- NOTE | 2024-06-03 00:40 | PCM.RX.CS ---
Consult Antibiotic Management Pharmacy has been consulted to manage selected antibiotic: Vancomycin Type of Intervention Type of Consult: New start Labs Labs: Sodium 143 mmol/L (136-145) 06/02/24 15:32 Potassium 3.4 mmol/L (3.5-5.1) L 06/02/24 15:32 Chloride 114 mmol/L (98-107) H 06/02/24 15:32 Carbon Dioxide 23.0 mmol/L (21.0-32.0) 06/02/24 15:32 Anion Gap 6 (5-15) 06/02/24 15:32 BUN 11 mg/dL (7-18) 06/02/24 15:32 Creatinine 0.94 mg/dL (0.55-1.02) 06/02/24 15:32 Est GFR (MDRD) Af Amer 80 mL/min (>60) 06/02/24 15:32 Est GFR (MDRD) Non-Af 66 mL/min (>60) 06/02/24 15:32 BUN/Creatinine Ratio 11.7 RATIO (10-20) 06/02/24 15:32 Glucose 89 mg/dL (74-106) 06/02/24 15:32 Dosing Weight Weight used for dosin.2 kg Estimated Creatinine Clearance Estimated Creatinine Clearance: 77.54 Goal Trough Goal Trough: 15-20 mcg/mL Pharmacy Plan for Drug Dosing Pharmacy Plan for Drug Dosing: Pharmacy Service will continue to monitor and adjust dosing as required. 1250MG GIVEN IN ER @ 4837. START 1250MG Q12H AND DRAW TROUGH PRIOR TO 4TH DOSE Follow-Up Labs Follow-Up Labs: Trough: Vancomycin Date/Time Labs Ordered Labs to be done on [date and time ordered]: 06/04 @ 1130
[2024-06-03] MEDS: HYDROmorphone 0.5 MG/0.5 ML SYRINGE IV ×4 (02:30→23:04)
[2024-06-03] MEDS: Phenol/Sodium Phenolate 180ML 5 SPRAY MUCOUS MEM (02:30)
[2024-06-03] MEDS: levETIRAcetam IV 1,000 MG/100 ML BAG 400 MG IV ×2 (02:30→23:04)
[2024-06-03] MEDS: Ondansetron 4 MG/2 ML Vial IV ×2 (02:45→23:04)
--- NOTE | 2024-06-03 03:00 | NURSING ---
Pt states that Buprenorphine patch does not work and states it is like taking 2 tylen[address] Doctor Campos stated to D/C the patch and ordered IV pain medication in its place
[2024-06-03] MEDS: Pantoprazole Sodium 80 MG in 0.9% Normal Saline (100mL Bag) 80 ML 10 MG CONT INF (03:35)
[2024-06-03] MEDS: KCL 20MEQ in 0.9% NS 20 MEQ/1,000 ML IV.SOLN. 125 MEQ IV (03:45)
[2024-06-03 06:30] LABS: Bedside Glucose 121 mg/dL (74-106)
[2024-06-03 07:01] LABS: Bedside Glucose 83 mg/dL (74-106)
[2024-06-03 07:36] LABS: Absolute Lymphocyte Count 1.88 X10^3/uL (0.83-4.51); Absolute Neutrophil Count 6.7 X10^3/uL (2.0-7.7); Basophil# 0.05 X10^3/uL; Basophil% 0.5 % (0-1); Eosinophils% 1.1 % (0-5); Hematocrit 24.5 % (37-47); Hemoglobin 6.9 g/dL (12.0-15.0); Lymphocyte # 1.88 X10^3/ul (0.83-4.51); Mean Corp Hgb Conc 28.2 g/dL (32-36); Mean Corpuscular Hgb 22.1 pg (27.0-32.0); Mean Corpuscular Volume 78.5 fL (81-99); Mean Platelet Vol. 9.4 fl (6.2-12.0); Monocyte# 0.63 X10^3/uL; Monocyte% 6.7 % (0-10); NRBC Flagged by Analyzer 0 % (0-5); Neutrophil # 6.69 X10^3/uL (2.7-7.7); Platelet Count 337 K/mm3 (150-450); RBC Distribution Width CV 16.7 % (11.6-14.6); RBC Distribution Width SD 46.2 fl (35.1-43.9); Red Blood Count 3.12 M/mm3 (4.2-5.4); White Blood Count 9.4 K/mm3 (4.4-11.0)
[2024-06-03] MEDS: Budesonide Respules 0.5 MG/2 ML AMPUL.NEB. INHALATION ×2 (07:36→19:08)
[2024-06-03] MEDS: Albuterol 2.5 MG/3 ML VIAL.NEB. INHALATION ×2 (07:36→19:07)
--- NOTE | 2024-06-03 08:04 | NURSING ---
I spoke to [facility] transfer line and they stated the pt is on the wait list however it will likely be a few days before they have a bed available.
[2024-06-03] MEDS: Nystatin Powder 15gm Bottle 1 APPLIC TOPICAL ×3 (08:26→23:04)
[2024-06-03] MEDS: Scopolamine 1mg/72hr Patch 1 PATCH TD (08:26)
[2024-06-03] MEDS: Piperacil/Tazobactam 3.375 GM in 0.9% Normal Saline (50mL MB+) 50 ML IV ×3 (08:30→23:45)
[2024-06-03 08:34] LABS: ALB/GLOB Ratio 0.4 RATIO (0.9-2.4); AST(SGOT) 25 U/L (15-37); Alanine Aminotransfer ALT/SGPT 21 U/L (13-56); Albumin, Serum 1.8 g/dL (3.2-5.0); Alkaline Phosphatase 269 U/L (45-117); Anion Gap 7 (5-15); BUN 9 mg/dL (7-18); Calcium,Total 8.6 mg/dL (8.5-10.1); Chloride 115 mmol/L (98-107); EST Glomerular Filtration Rate 69 mL/min (>60); Est Glom Filt Rate - Afr Amer 84 mL/min (>60); Estimated Creatinine Clearance 80.99 ml/min; Globulin 4.7 g/dL (2.2-4.2); Glucose 104 mg/dL (74-106); Phosphorus 3.9 mg/dL (2.5-4.9); Potassium 3.5 mmol/L (3.5-5.1); Protein, Total 6.5 g/dL (6.4-8.2); Sodium Level 143 mmol/L (136-145); Thyroid Stim Hormone (TSH) 0.607 uIU/mL (0.358-3.740)
[2024-06-03] MEDS: 0.9% Saline Lock 10 ML Syringe IV ×3 (08:37→18:14)
[2024-06-03] MEDS: Lidocaine 5% Patch 1 PATCH TOPICAL (10:01)
[2024-06-03 10:37] LABS: Hemoglobin A1c 5.7 % (3.8-5.6)
[2024-06-03] MEDS: oxyCODONE 5 MG Tablet 10 MG PO (10:59)
[2024-06-03 11:45] LABS: Bedside Glucose 79 mg/dL (74-106)
--- NOTE | 2024-06-03 12:07 | WOUNDNOTE ---
wound photo: sacrum
[2024-06-03] MEDS: Vancomycin HCl 1,250 MG in 0.9% Normal Saline (250mL Bag) 250 ML 167 MG IV (14:10)
[2024-06-03] MEDS: 0.9% Normal Saline (500mL Bag) 500 ML 15 ML IV (14:12)
--- NOTE | 2024-06-03 18:11 | PCM.PN.HOSP ---
Reason for Visit Reason for Visit: Diagnoses Type 2 diabetes mellitus with unspecified complications (06/02/24) Obesity, class 1 (06/02/24) Acidosis, unspecified (06/02/24) Hypokalemia (06/02/24) Crohn's disease, unspecified, with unspecified complications (06/02/24) Gastrointestinal hemorrhage, unspecified (06/02/24) Pressure ulcer of sacral region, unspecified stage (06/02/24) Acute cystitis with hematuria (06/02/24) Subjective Subjective Patient was seen and examined today, I talked briefly with gastroenterology about her care, they agreed to see the patient and recommended an EGD. Patient was admitted pending bed availability at [facility] for the patient. Patient's hemoglobin this morning was 6.9, ordered 1 unit of packed red blood cells to be transfused. Patient has a stage IV sacral decubitus, this was inspected by the wound care nurse, recommendations were made for continuing care of the wound. Objective Data Objective Data Vital Signs: Vital Signs Temp Pulse Resp BP Pulse Ox O2 Del Method 95.8 F L 75 16 120/67 100 Room Air 06/03/24 13:54 06/03/24 13:54 06/03/24 13:54 06/03/24 13:54 06/03/24 13:54 06/03/24 15:34 Oxygen Delivery Method Room Air Weight: 84 kg Body Mass Index (BMI) 29.0 Intake & Output: Intake and Output for Last 24 Hours 06/01/24 06/02/24 06/03/24 23:59 23:59 23:59 Intake Total 1193.3 / 1193.3 985.33 / 985.33 Output Total 500 / 500 Balance 1193.3 / 1193.3 485.33 / 485.33 Lab / Micro Data 06/04/24 05:14 06/03/24 04:10 Labs: Laboratory Results - last 24 hr 06/02/24 17:40: Urine Color Yellow, Urine Clarity Cloudy, Urine pH 6.5, Ur Specific [place] 1.010, Urine Protein 30 H, Urine Glucose (UA) Normal, Urine Ketones Negative, Urine Occult Blood 50 H, Urine Nitrite Negative, Urine Bilirubin Negative, Urine Urobilinogen Normal, Ur Leukocyte Esterase 500 H, Urine RBC 5-10 SEEN, Urine WBC 50-100 SEEN, Ur Squamous Epith Cells 0-5 SEEN, Urine Bacteria 2+, Urine Mucus 0 SEEN 06/02/24 20:35: Lactic Acid 2.1 H* 06/03/24 02:39: POC Glucose 121 H 06/03/24 04:10: WBC 9.4, RBC 3.12 L, Hgb 6.9 L, Hct 24.5 L, MCV 78.5 L, MCH 22.1 L, MCHC 28.2 L, RDW Std Deviation 46.2 H, RDW Coeff of Gerardo 16.7 H, Plt Count 337, MPV 9.4, Immature Gran % (Auto) 0.700, Neut % (Auto) 71.0 H, Lymph % (Auto) 20.0, [place] % (Auto) 6.7, Eos % (Auto) 1.1, Baso % (Auto) 0.5, Absolute Neuts (auto) 6.7, Absolute Lymphs (auto) 1.88, Nucleated RBC % 0, Sodium 143, Potassium 3.5, Chloride 115 H, Carbon Dioxide 20.0 L, Anion Gap 7, BUN 9, Creatinine 0.90, Estim Creat Clear Calc 80.99, Est GFR (MDRD) Af Amer 84, Est GFR (MDRD) Non-Af 69, BUN/Creatinine Ratio 10.0, Glucose 104, Hemoglobin A1c 5.7 H, Calcium 8.6, Phosphorus 3.9, Magnesium 2.0, Total Bilirubin 0.20, AST 25, ALT 21, Alkaline Phosphatase 269 H, Total Protein 6.5, Albumin 1.8 L, Globulin 4.7 H, Albumin/Globulin Ratio 0.4 L, TSH 0.607 06/03/24 06:29: POC Glucose 83 06/03/24 11:28: POC Glucose 79 Micro: Microbiology 06/03/24 07:00 Wound - Buttock Gram Stain - Final 06/02/24 17:40 Urine, Clean Catch 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 Physical Exam Const alert, oriented x3, no apparent distress and healthy appearing General Appearance: cooperative, well kempt and well developed Orientation / Consciousness: awake, oriented to person, oriented to place and oriented to time HEENT normocephalic, head/scalp atraumatic and moist oral mucous membranes Eyes PERRL, EOMs intact bilaterally and conjunctivae normal Neck supple, no JVD, thyroid normal and no carotid bruits General: trachea midline Resp normal respiratory effort and clear to auscultation bilaterally Auscultation: Negative for rales, rhonchi or wheezes Cardio regular rate, regular rhythm, S1 normal heart sound, S2 normal heart sound, no murmurs, no rub and no gallops GI normal to inspection, nondistended, normoactive bowel sounds, soft to palpation, non-tender and non-distended Extremity Extremity Narrative: 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 Skin Skin Narrative: Patient has a large sacral stage IV decubitus noted, there is no purulent drainage from the area however Neuro oriented x3, CN's II-XII intact bilaterally, moves all extremities, no focal motor deficits and no sensory deficits noted Sensorium / Orientation: awake and alert Speech: speech normal Psych affect normal Assessment & Plan Assessment/Plan (1) Acute cystitis with hematuria: PLAN: Plan #1 GI bleed with bright red blood from colostomy site, patient will be transfused 1 unit of packed red blood cells, labs will be monitored, patient will be seen in consultation by GI #2 acute cystitis-IV vancomycin and IV Zosyn are being given #3 chronic sacral decubitus-the wound nurse saw the patient today and states that the area does not look grossly infected, continue treatment per wound nurse #4 type 2 diabetes-blood sugars will be monitored, sliding scale insulin will be given as needed Total clinical time spent by myself addressing the patient's medical issues, reviewing all of her data, and collaborating with patient's care team: 35-minute Charges/Coding Visit Charges Inpatient E&M: 11657 Subs Hosp L2
[2024-06-03 18:34] LABS: Bedside Glucose 76 mg/dL (74-106)
--- NOTE | 2024-06-03 18:50 | CON.PCM.GI_ITS ---
HPI Consult Data Date of Consult: 06/03/24 HPI Narrative Reason for Consultation: GI bleed HPI Narrative: EAMON SHEEHAN, is a 54 F with a past medical history of Crohn's disease; on adalimumab, history of colostomy secondary to nonhealing decubitus ulcer with chronic pain on buprenorphine patch and ibuprofen 800 mg PO TID prn who presented to [facility] ER complaining of GI bleed. She reports her symptoms began approximately 1 day prior to admission with blood coming out of her colostomy. She states that yesterday she noted she was passing clots from her colostomy site that have been worsening since that time so she came into the ER for further evaluation and treatment. She states the blood is bright red in nature and denies being on any blood thinning medications or anticoagulants. She denies associated fever, chills, nausea, vomiting or abdominal pain. The ER physician spoke with the malt loader and general surgeon on-call who recommended transfer to tertiary care center if she would need revision of her colostomy given her history of Crohn's disease she would likely need a colorectal surgeon. In the ER her CT scan of the abdomen pelvis revealed colostomy through the left anterior abdominal wall with skin wound over the sacrum with subcutaneous emphysema likely related to decubitus ulcer and skin thickening and subcutaneous edema of the Left gluteal region and left proximal thigh posteriorly along with enlarged spleen with no other acute pathologic changes noted. Due to limited bed availability patient cannot be transferred immediately and has been waiting in the ER over 6 hours and that is hospitals policy to admit patients who will be awaiting prolonged transfer will be admitted to the hospitalist service so they can be cared for until such time transfer becomes available. In the ER she was noted to have a hemoglobin of 7.7 g/dL with an elevated lactic acid of 2.1 mmol/L and mild hypokalemia of 3.4 mmol/L present on admission in addition to UA grossly positive for acute cystitis; with microscopic hematuria. She was then empirically started on IV vancomycin and IV Zosyn along with IV Protonix drip and multiple doses of IV morphine with 1 L normal saline fluid bolus. [facility] Medical History Decubitus ulcer Hypertension Asthma Insomnia Crohn disease Hypothyroid Diabetes Home Medications ?Medication ?Instructions ?Recorded ?Last Taken ?Type Lactobacillus acidophilus 1 1,000 mmu cells PO DAILY 06/02/24 06/01/24 History billion cell capsule acetaminophen 325 mg tablet 650 mg PO Q6H PRN pain 06/02/24 Unknown History adalimumab 40 mg/0.4 mL 40 mg subcut Q14D 06/02/24 05/19/24 History subcutaneous pen kit (Humira(CF) Pen) albuterol sulfate 2.5 mg/0.5 mL 2.5 mg inhalation Q4H PRN 06/02/24 Unknown History solution for nebulization shortness of breath or wheezing albuterol sulfate 90 mcg/actuation 1 puff inhalation Q4H PRN 06/02/24 Unknown History aerosol inhaler shortness of breath or wheezing alprazolam 0.5 mg tablet 0.5 mg PO DAILY 06/02/24 06/01/24 History amitriptyline 100 mg tablet 100 mg PO QHS 06/02/24 06/01/24 History ascorbic acid (vitamin C) 500 mg 500 mg PO DAILY 06/02/24 06/01/24 History tablet (Vitamin C) atorvastatin 80 mg tablet 80 mg PO DAILY 06/02/24 06/01/24 History buprenorphine 10 mcg/hour weekly 1 patch topical TU 06/02/24 05/26/24 History transdermal patch colestipol 1 gram tablet 2 g PO BID 06/02/24 06/01/24 History cyclosporine 0.05 % eye drops in a 1 drp ophthalmic (eye) Q12H 06/02/24 06/01/24 History dropperette (Restasis) epinephrine 0.3 mg/0.3 mL 0.3 mg IM PRN PRN anaphylaxis 06/02/24 Unknown History injection, auto-injector ergocalciferol (vitamin D2) 1,250 1,250 mcg PO TU 06/02/24 05/26/24 History mcg (50,000 unit) capsule escitalopram oxalate 20 mg tablet 20 mg PO DAILY 06/02/24 06/01/24 History famotidine 20 mg tablet 40 mg PO BID 06/02/24 06/01/24 History fluticasone furoate 200 1 ea inhalation DAILY 06/02/24 06/01/24 History mcg-vilanterol 25 mcg/dose inhalation powder (Breo Ellipta) folic acid 1 mg tablet 1 mg PO DAILY 06/02/24 06/01/24 History furosemide 40 mg tablet 40 mg PO DAILY PRN edema 06/02/24 Unknown History ibuprofen 800 mg tablet 800 mg PO TID PRN pain 06/02/24 Unknown History insulin glargine U-300 conc 300 44 unit subcut DAILY 06/02/24 06/01/24 History unit/mL (1.5 mL) subcutaneous pen (Toujeo SoloStar U-300 Insulin) insulin lispro 100 unit/mL 1 sliding scale dose subcut TIDCM 06/02/24 06/01/24 History subcutaneous pen (Humalog KwikPen (U-100) Insulin) levetiracetam 1,000 mg tablet 1,000 mg PO BID 06/02/24 06/01/24 History levothyroxine 200 mcg tablet 200 mcg PO DAILY 06/02/24 06/01/24 History lidocaine 5 % topical patch 1 patch topical DAILY 06/02/24 06/01/24 History loperamide 2 mg tablet 2 mg PO TID PRN loose stool 06/02/24 Unknown History magnesium oxide 400 mg (241.3 mg 400 mg PO DAILY 06/02/24 06/01/24 History magnesium) tablet metformin 500 mg tablet,extended 500 mg PO BID 06/02/24 06/01/24 History release 24 hr nitroglycerin 0.4 mg sublingual 0.4 mg sublingual Q5M PRN chest 06/02/24 Unknown History tablet pain nystatin 100,000 unit/gram topical 1 applic topical TID 06/02/24 06/01/24 History powder (Nystop) pantoprazole 40 mg tablet,delayed 40 mg PO BID 06/02/24 06/01/24 History release pregabalin 225 mg capsule 225 mg PO TID 06/02/24 06/01/24 History primidone 50 mg tablet 50 mg PO BID 06/02/24 06/01/24 History promethazine 25 mg tablet 25 mg PO Q8H PRN nausea and 06/02/24 Unknown History vomiting propranolol 10 mg tablet 10 mg PO DAILY 06/02/24 06/01/24 History quetiapine 100 mg tablet 100 - 200 mg PO QHS 06/02/24 06/01/24 History ropinirole 4 mg tablet 4 mg PO QHS 06/02/24 06/01/24 History scopolamine base 1 mg over 3 days 1 patch topical Q3D 06/02/24 05/30/24 History transdermal patch semaglutide 2 mg/dose (8 mg/3 mL) 2 mg subcut TU 06/02/24 05/26/24 History subcutaneous pen injector (Ozempic) sucralfate 1 gram tablet 1 g PO TID 06/02/24 06/01/24 History sumatriptan succinate 100 mg tablet 100 mg PO UD 06/02/24 Unknown History tizanidine 4 mg tablet 4 mg PO 4X/DAY PRN muscle 06/02/24 Unknown History spasticity topiramate 50 mg tablet (Topamax) 50 mg PO BID 06/02/24 06/01/24 History Allergy/AdvReac Type Severity Reaction Status Date / Time daptomycin Allergy Severe Anaphylaxis Verified 06/02/24 15:10 Cephalosporins Allergy Intermediate Rash Verified 06/02/24 15:10 bee venom protein (honey Allergy Rash Verified 06/02/24 15:10 bee) (bee sting) Social History Smoking Status: Never smoker ROS ROS Narrative Review of Systems: Constitutional: Patient denies fever or chills. Eyes: Patient denies changes in vision or discharge from eyes. ENT: Patient denies runny nose, sore throat or ear pain. Resp: Patient denies shortness of breath or cough. CV: Patient denies chest pain, palpitations or heart racing. GI: Patient admits to bleeding from her colostomy site with bright red blood and clots as per HPI. She denies nausea or vomiting and is otherwise having normal output. : Patient complains of decreased urinary output and Ibarra catheter. MSK: Patient denies arthralgias or myalgias but she does admit to chronic pain. Skin: Patient has chronic sacral decubitus wound. Psych: Patient denies symptoms of uncontrolled depression or anxiety. Neuro: Patient denies headache, paresthesias or focal neurologic deficits. Allergy: Patient denies lip swelling, tongue swelling or urticaria. Hematology: Patient admits to bleeding from her colostomy site as noted above. Endocrinology: Patient denies polyuria, polydipsia or polyphagia. 14 point review of systems otherwise negative except for positives noted above in HPI. Physical Exam Const alert, oriented x3 and no apparent distress Constitutional Narrative: Patient is obese and appears chronically ill. General Appearance: cooperative HEENT normocephalic, head/scalp atraumatic, hearing grossly normal bilaterally and moist oral mucous membranes Eyes PERRL and EOMs intact bilaterally Neck no lymphadenopathy and supple Resp normal respiratory effort, no retractions, no use of accessory muscles and clear to auscultation bilaterally Cardio regular rate and regular rhythm GI normal to inspection, nondistended, normoactive bowel sounds, soft to palpation, non-tender and non-distended GI Narrative: Blood noted in colostomy bag with colostomy site appearing pink and moist and nontender to palpation. 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 Skin Skin Narrative: Patient has a chronic sacral wound with foul smell but no active drainage coming from site at this time. Neuro oriented x3, CN's II-XII intact bilaterally, moves all extremities and no focal motor deficits Sensorium / Orientation: awake, alert, oriented to person, oriented to place and oriented to time Speech: speech normal Psych affect normal Lab / Micro Data 06/03/24 04:10 06/03/24 04:10 Labs: Laboratory Results - last 24 hr 06/02/24 17:40: Urine RBC 5-10 SEEN, Urine WBC 50-100 SEEN, Ur Squamous Epith Cells 0-5 SEEN, Urine Bacteria 2+, Urine Mucus 0 SEEN 06/02/24 20:35: Lactic Acid 2.1 H* 06/03/24 02:39: POC Glucose 121 H 06/03/24 04:10: WBC 9.4, RBC 3.12 L, Hgb 6.9 L, Hct 24.5 L, MCV 78.5 L, MCH 22.1 L, MCHC 28.2 L, RDW Std Deviation 46.2 H, RDW Coeff of Gerardo 16.7 H, Plt Count 337, MPV 9.4, Immature Gran % (Auto) 0.700, Neut % (Auto) 71.0 H, Lymph % (Auto) 20.0, [place] % (Auto) 6.7, Eos % (Auto) 1.1, Baso % (Auto) 0.5, Absolute Neuts (auto) 6.7, Absolute Lymphs (auto) 1.88, Nucleated RBC % 0, Sodium 143, Potassium 3.5, Chloride 115 H, Carbon Dioxide 20.0 L, Anion Gap 7, BUN 9, Creatinine 0.90, Estim Creat Clear Calc 80.99, Est GFR (MDRD) Af Amer 84, Est GFR (MDRD) Non-Af 69, BUN/Creatinine Ratio 10.0, Glucose 104, Hemoglobin A1c 5.7 H, Calcium 8.6, Phosphorus 3.9, Magnesium 2.0, Total Bilirubin 0.20, AST 25, ALT 21, Alkaline Phosphatase 269 H, Total Protein 6.5, Albumin 1.8 L, Globulin 4.7 H , Albumin/Globulin Ratio 0.4 L, TSH 0.607 06/03/24 06:29: POC Glucose 83 06/03/24 11:28: POC Glucose 79 06/03/24 18:13: POC Glucose 76 Micro: Microbiology 06/03/24 07:00 Wound - Buttock Gram Stain - Final 06/02/24 17:40 Urine, Clean Catch Urine Culture - Preliminary GNR lactose novelty candy maker Assessment & Plan Assessment/Plan (1) GI (gastrointestinal bleed): QUALIFIERS: GI bleed type/associated pathology: unspecified gastrointestinal hemorrhage type Qualified Code(s): K92.2 - Gastrointestinal hemorrhage, unspecified (2) Crohn disease: QUALIFIERS: Gastrointestinal tract location: unspecified location Digestive disease complication type: unspecified complication Qualified Code(s): K50.919 - Crohn's disease, unspecified, with unspecified complications (3) Acute cystitis with hematuria: (4) Decubitus ulcer of sacral area: QUALIFIERS: Pressure injury stage: unspecified pressure injury stage Qualified Code(s): L89.159 - Pressure ulcer of sacral region, unspecified stage (5) Lactic acidosis: (6) Hypokalemia: (7) DM type 2 causing complication: (8) Obesity (BMI 30.0-34.9): PLAN: Plan 54-year-old with iron deficiency anemia and acute GI bleed with bright red blood coming from colostomy site with hemoglobin of 7.7 g/dL present on admission in the setting of known Crohn's disease. Differential diagnosis does include upper GI bleed with rapid transit, stomal bleed, small bowel bleed secondary to inflammatory bowel disease. Recommend upper endoscopy and possible colonoscopy via her colostomy bag and capsule endoscopy. She was explained alternatives, risk and benefits of longstanding bleeding, fracture, sepsis, perforation, need for emergent . She we will have an ASA of 3. Charges/Coding Visit Charges Inpatient E&M: 70684 Init Hosp L3
[2024-06-03] MEDS: Electrolyte Solution/Peg's 4000 ML PO (23:01)
[2024-06-03] MEDS: DAKIN'S SOL HALF STRENGTH (=0.25%) TOPICAL (23:02)
[2024-06-04] VITALS (16 sets, daily range): BP systolic 101–161; BP diastolic 63–82; PULSE 72–94; RESP 16–20; TEMP 36.1–36.9; O2SAT 95–100; BMI 29.5
[2024-06-04 01:16] LABS: Bedside Glucose 83 mg/dL (74-106)
[2024-06-04] MEDS: Vancomycin HCl 1,250 MG in 0.9% Normal Saline (250mL Bag) 250 ML 167 MG IV (01:28)
[2024-06-04] MEDS: HYDROmorphone 0.5 MG/0.5 ML SYRINGE IV ×4 (03:21→22:28)
--- NOTE | 2024-06-04 05:55 | EKG12_ITS ---
Test Reason : AM EKG Blood Pressure : */* mmHG Vent. Rate : 86 BPM Atrial Rate : 86 BPM P-R Int : 158 ms QRS Dur : 78 ms QT Int : 362 ms P-R-T Axes : 54 15 63 degrees QTcB Int : 433 ms Normal sinus rhythm Normal ECG When compared with ECG of 02-Jun-2024 15:20, MANUAL COMPARISON REQUIRED DATA IS UNCONFIRMED Confirmed by Onesimo Lujan ([id number]), editor trade journal CESAR LEOS ([id number]) on 06/05/2024 6:48:05 AM Referred By: GONZALES Confirmed By: Onesimo Lujan
[2024-06-04 06:08] LABS: Absolute Lymphocyte Count 2.08 X10^3/uL (0.83-4.51); Absolute Neutrophil Count 4.4 X10^3/uL (2.0-7.7); Basophil# 0.06 X10^3/uL; Basophil% 0.8 % (0-1); Eosinophil# 0.19 X10^3/uL; Eosinophils% 2.6 % (0-5); Hematocrit 28.1 % (37-47); Hemoglobin 8.6 g/dL (12.0-15.0); Lymphocyte # 2.08 X10^3/ul (0.83-4.51); Lymphocyte % 28.2 % (19-41); Mean Corp Hgb Conc 30.6 g/dL (32-36); Mean Corpuscular Hgb 23.8 pg (27.0-32.0); Mean Corpuscular Volume 77.8 fL (81-99); Monocyte# 0.59 X10^3/uL; NRBC Flagged by Analyzer 0 % (0-5); Neutrophil % 59.7 % (47-70); Platelet Count 379 K/mm3 (150-450); RBC Distribution Width CV 16.8 % (11.6-14.6); RBC Distribution Width SD 47.3 fl (35.1-43.9); Red Blood Count 3.61 M/mm3 (4.2-5.4); White Blood Count 7.4 K/mm3 (4.4-11.0)
[2024-06-04] MEDS: Nystatin Powder 15gm Bottle 1 APPLIC TOPICAL ×3 (06:19→22:28)
[2024-06-04] MEDS: Piperacil/Tazobactam 3.375 GM in 0.9% Normal Saline (50mL MB+) 50 ML IV (06:21)
[2024-06-04 06:43] LABS: Magnesium 1.9 mg/dL (1.6-2.6)
[2024-06-04] MEDS: Budesonide Respules 0.5 MG/2 ML AMPUL.NEB. INHALATION ×2 (06:49→19:51)
[2024-06-04] MEDS: Albuterol 2.5 MG/3 ML VIAL.NEB. INHALATION ×3 (06:49→19:51)
[2024-06-04 06:52] LABS: Bedside Glucose 79 mg/dL (74-106)
[2024-06-04] MEDS: 0.9% Saline Lock 10 ML Syringe IV ×3 (08:04→15:05)
[2024-06-04 08:41] LABS: Internal QC Validated? YES +Cl - CLEAR BKGD; Pregnancy, Urine Negative Negative
[2024-06-04] MEDS: Lidocaine 5% Patch 1 PATCH TOPICAL (09:34)
[2024-06-04] MEDS: DAKIN'S SOL HALF STRENGTH (=0.25%) TOPICAL ×2 (10:08→22:28)
--- NOTE | 2024-06-04 10:26 | WOUNDNOTE ---
Ostomy appliance leaking all over the bed. pt states she had bowel prep last evening and had numerous leaks. removed the appliance. cleansed skin with warm water and pat dry. applied a 2 piece flat [place] appliance with a small amount of paste. stoma is not prolapsed like it was yesterday. pt tolerated well.
[2024-06-04] MEDS: Amox/Clavulanate 875 MG Tablet PO ×2 (10:32→22:27)
[2024-06-04] MEDS: levETIRAcetam IV 1,000 MG/100 ML BAG 400 MG IV ×2 (10:32→22:28)
[2024-06-04 12:55] LABS: Bedside Glucose 63 mg/dL (74-106)
--- NOTE | 2024-06-04 16:05 | PRE.ANES_ITS ---
ASA Classification* ASA Classification ASA Classification: 3 Assessment & Plan Anesthesia* Anesthesia Assessment Anesthesia Assessment: Discussed sedation and/or anesthesia options, risks, benefits, and alternatives with patient/parents/legal guardian/POA. Questions invited. The patient/parents/legal guardian/POA seems to understand and agrees to proceed with anesthesia plan. Reviewed the physical assessment, medical history, allergy history and patient home medications list prior to surgery/procedure/anesthetic and documented any changes. Performed airway and anesthesia risk assessments. Anesthesia Type Anesthesia Type: MAC History Source History Obtained from:: Patient and Chart Anesthesia Focused Assessment* Temperature: 98.1 F Pulse Rate: 74 Blood Pressure: 140/63 Respiratory Rate: 16 Pulse Ox: 99 Oxygen Delivery Method: Room Air Airway Assessment Mouth opens: >3 cm Mallampati Score: II Teeth Condition: Intact (Poor dentition. Multiple caries.) Neck Range of motion (ROM): Limited ROM (Slight decrease in extension.) Focused Labs Anesthesia Preop lab: CBC WBC 7.4 K/mm3 (4.4-11.0) 06/04/24 05:14 RBC 3.61 M/mm3 (4.2-5.4) L 06/04/24 05:14 Hgb 8.6 g/dL (12.0-15.0) L 06/04/24 05:14 Hct 28.1 % (37-47) L 06/04/24 05:14 Plt Count 379 K/mm3 (150-450) 06/04/24 05:14 CHEMISTRY Potassium 3.5 mmol/L (3.5-5.1) 06/03/24 04:10 Sodium 143 mmol/L (136-145) 06/03/24 04:10 Magnesium 1.9 mg/dL (1.6-2.6) 06/04/24 05:14 Phosphorus 4.0 mg/dL (2.5-4.9) 06/04/24 05:14 BUN 9 mg/dL (7-18) 06/03/24 04:10 Creatinine 0.90 mg/dL (0.55-1.02) 06/03/24 04:10 Glucose 104 mg/dL (74-106) 06/03/24 04:10 POC Glucose 63 mg/dL (74-106) L 06/04/24 12:34 TSH 0.607 uIU/mL (0.358-3.740) 06/03/24 04:10 COAG Urine Test Negative Negative 06/04/24 08:25 Pre-Assessment Diagnosis/Proposed Procedure Planned Operative Procedure(s): EGD colonoscopy Anesthesia History Anesthesia History - 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 When Was Last Pacemaker Check QUESTION #4 FULL TEXT: You/Your Family Experience fever (hyperthermia) with Anesthesia Last Oral Intake Last Oral intake: Last Oral Intake NPO since 02:00 06/04/24 05:15 Meds taken in AM with sips of water? Meds patient instructed to take am of surgery Any additional information?: Yes NPO since: 08:00 (Patient finished prep at 8 AM.) PONV PONV - product development director: PONV - product development director Female HX of Motion Sickness HX of N/V After Surgery Non-Smoker Duration of Surgery greater than 60 minutes Number of Risk Factors PONV Score Height & Weight Height & Weight: Anesthesia: Height & Weight Height 5 ft 7 in 06/04/24 05:15 Weight: 85.6 kg 06/04/24 05:15 Body Mass Index (BMI) 29.5 06/04/24 05:15 Respiratory Assessment Respiratory Assessment - product development director: Respiratory Tract Infection Hx - product development director Hx Respiratory Tract Infection No 06/04/24 05:15 STOP Sleep Apnea STOP Sleep Apnea - product development director: STOP Sleep Apnea - product development director Hx Hypertension No 06/03/24 02:00 Hx Sleep Apnea No 06/03/24 02:00 CPAP BIPAP Do you snore loudly (louder No 06/03/24 02:00 than talking or can be heard Do you often feel tired/ No 06/03/24 02:00 fatigued/ sleepy during daytime? Has anyone observed you stop No 06/03/24 02:00 breathing during sleep? STOP Results Negative 06/03/24 02:00 QUESTION #5 FULL TEXT : Do you snore loudly (louder than talking or can be heard through closed doors)? Tobacco Use History Tobacco Use History - product development director: Tobacco Use History - product development director Tobacco Use Smoking Status Never smoker 06/03/24 02:00 Hx Tobacco Use No 06/03/24 02:00 Years Smoking Packs Smoked per Day Smoking Cessation Date was within the last 15 years Hx Smoking Cessation Date Hx Smoking Cessation Counseling Hematologic Medial History Hematologic Hx - product development director: Hematologic Medical Hx - chiropractic physician Hx of Blood Transfusion Yes 06/03/24 02:00 Hx of Transfusion in last 3 No 06/03/24 02:00 Months Date of Last Transfusion (if within last 3 months) Ever experience any problems No 06/03/24 02:00 with transfusion(s)? Specify any problems Hx of Preganancy in last 3 No 06/03/24 02:00 Months Nurse Filling Out Transfusion KWESMELODIE 06/03/24 02:00 & Questions: Date: 06/03/24 06/03/24 02:00 Time: 02:00 06/03/24 02:00 Patient unable to answer at this time (ie. confused, unrespo /Reproduction History /Reproductive History - product development director: /Reproductive Hx- product development director Hx Now Gestational Age (in weeks): EDC: Hx Hx Para Hx Section SAB Active Medications Active Medications: Current Medications Generic Name Dose Route Start Last Admin Trade Name Freq PRN Reason Stop Dose Admin Albuterol Sulfate 2.5 mg 06/03/24 00:28 Albuterol 2.5 Mg/3 Ml Vial.Neb. INHALATION Q4H PRN PRN shortness of breath or wheezing Albuterol Sulfate 2.5 mg 06/03/24 00:45 06/04/24 12:34 Albuterol 2.5 Mg/3 Ml Vial.Neb. INHALATION 2.5 mg Q6HWA.RT BAYRON Administration Amoxicillin/Clavulanate Potassium 875 mg 06/04/24 10:00 06/04/24 10:32 Amox/Clavulanate 875 Mg Tablet PO 875 mg BID BAYRON Administration Budesonide 0.5 mg 06/03/24 00:45 06/04/24 06:49 Budesonide Respules 0.5 Mg/2 Ml Ampul.Neb. INHALATION 0.5 mg Q12H.RT BAYRON Administration Epinephrine HCl 0.3 mg 06/03/24 00:22 Epi Pen (Equiv) 0.3 Mg Syringe IM PRN PRN anaphylaxis Glucagon 1 mg 06/03/24 00:22 Glucagon 1 Mg/Ml Syringe IM X1 PRN HYPOGLYCEMIA Protocol Glycerin/Hypromellose/Polyethylene 1 drp 06/03/24 00:30 Glycerin/Hypromellose/[id number] 15 Ml Bottle EACH EYE Q1H PRN PRN DRY EYES Hydromorphone HCl 0.5 mg 06/03/24 01:44 06/04/24 15:04 Hydromorphone 0.5 Mg/0.5 Ml Syringe IV 0.5 mg Q4H PRN PRN Administration for pain 6-10 Levetiracetam 1,000 mg in 100 mls @ 400 mls/hr 06/03/24 00:22 06/04/24 10:47 IV Infused Q12 [facility] Infusion Dextrose 250 mls @ 0 mls/hr 06/03/24 00:22 Dextrose 10%-Water IV .Q0M PRN HYPOGLYCEMIA Protocol As Directed Sodium Chloride 500 mls @ 15 mls/hr 06/03/24 01:29 06/03/24 14:13 IV 0 mls/hr .[id number] PRN Infusion Saline Flush Sodium Chloride 500 mls @ 15 mls/hr 06/03/24 01:29 IV .[id number] PRN Additional IVPB Infusion Insulin Glargine 10 unit 06/03/24 10:00 06/04/24 09:29 Insulin Glargine-Yfgn 100 Unit/Ml Pen SC Not Given DAILY B[facility] Insulin Human Lispro 0 unit 06/03/24 00:22 06/04/24 12:36 Insulin Lispro 100 Unit/Ml Insuln.Pen SC Not Given Q6 [facility] Protocol Lidocaine 1 patch 06/03/24 10:00 06/04/24 09:34 Lidocaine 5% Patch TOPICAL 1 patch DAILY BAYRON Administration Protocol Lorazepam 2 mg 06/03/24 00:22 Lorazepam 2 Mg/Ml Syringe IV Q4H PRN PRN SEIZURES Nystatin 1 applic 06/03/24 06:00 06/04/24 15:05 Nystatin Powder 15gm Bottle TOPICAL 1 applic TID B[facility]RON Administration Protocol Ondansetron HCl 4 mg 06/03/24 00:22 06/03/24 23:04 Ondansetron 4 Mg/2 Ml Vial IV 4 mg Q4H PRN PRN Administration NAUSEA/VOMITING Phenol/Menthol 5 spray 06/03/24 01:45 06/03/24 02:30 Phenol/Sodium Phenolate 180ml MUCOUS MEM 5 spray Q2H PRN PRN Administration SORE THROAT Scopolamine HBr 1 patch 06/03/24 00:22 06/03/24 08:26 Scopolamine 1mg/72hr Patch TD 1 patch Q3D B[facility] Administration Sodium Chloride 10 - 40 ml 06/03/24 01:29 06/04/24 15:05 0.9% Saline Lock 10 Ml Syringe IV 10 ml UD PRN Administration SALINE FLUSH Sodium Hypochlorite 0 ml 06/03/24 22:00 06/04/24 10:08 Dakin's Adilia Half Strength (=0.25%) TOPICAL 1 applic BID [facility] Administration Protocol [facility] Medical History ESBL (extended spectrum beta-lactamase) producing bacteria infection Decubitus ulcer Hypertension Asthma Insomnia Crohn disease Hypothyroid Diabetes Home Medications ?Medication ?Instructions ?Recorded ?Last Taken ?Type Lactobacillus acidophilus 1 1,000 mmu cells PO DAILY 06/02/24 06/01/24 History billion cell capsule acetaminophen 325 mg tablet 650 mg PO Q6H PRN pain 06/02/24 Unknown History adalimumab 40 mg/0.4 mL 40 mg subcut Q14D 06/02/24 05/19/24 History subcutaneous pen kit (Humira(CF) Pen) albuterol sulfate 2.5 mg/0.5 mL 2.5 mg inhalation Q4H PRN 06/02/24 Unknown History solution for nebulization shortness of breath or wheezing albuterol sulfate 90 mcg/actuation 1 puff inhalation Q4H PRN 06/02/24 Unknown History aerosol inhaler shortness of breath or wheezing alprazolam 0.5 mg tablet 0.5 mg PO DAILY 06/02/24 06/01/24 History amitriptyline 100 mg tablet 100 mg PO QHS 06/02/24 06/01/24 History ascorbic acid (vitamin C) 500 mg 500 mg PO DAILY 06/02/24 06/01/24 History tablet (Vitamin C) atorvastatin 80 mg tablet 80 mg PO DAILY 06/02/24 06/01/24 History buprenorphine 10 mcg/hour weekly 1 patch topical TU 06/02/24 05/26/24 History transdermal patch colestipol 1 gram tablet 2 g PO BID 06/02/24 06/01/24 History cyclosporine 0.05 % eye drops in a 1 drp ophthalmic (eye) Q12H 06/02/24 06/01/24 History dropperette (Restasis) epinephrine 0.3 mg/0.3 mL 0.3 mg IM PRN PRN anaphylaxis 06/02/24 Unknown History injection, auto-injector ergocalciferol (vitamin D2) 1,250 1,250 mcg PO TU 06/02/24 05/26/24 History mcg (50,000 unit) capsule escitalopram oxalate 20 mg tablet 20 mg PO DAILY 06/02/24 06/01/24 History famotidine 20 mg tablet 40 mg PO BID 06/02/24 06/01/24 History fluticasone furoate 200 1 ea inhalation DAILY 06/02/24 06/01/24 History mcg-vilanterol 25 mcg/dose inhalation powder (Breo Ellipta) folic acid 1 mg tablet 1 mg PO DAILY 06/02/24 06/01/24 History furosemide 40 mg tablet 40 mg PO DAILY PRN edema 06/02/24 Unknown History ibuprofen 800 mg tablet 800 mg PO TID PRN pain 06/02/24 Unknown History insulin glargine U-300 conc 300 44 unit subcut DAILY 06/02/24 06/01/24 History unit/mL (1.5 mL) subcutaneous pen (Toujeo SoloStar U-300 Insulin) insulin lispro 100 unit/mL 1 sliding scale dose subcut TIDCM 06/02/24 06/01/24 History subcutaneous pen (Humalog KwikPen (U-100) Insulin) levetiracetam 1,000 mg tablet 1,000 mg PO BID 06/02/24 06/01/24 History levothyroxine 200 mcg tablet 200 mcg PO DAILY 06/02/24 06/01/24 History lidocaine 5 % topical patch 1 patch topical DAILY 06/02/24 06/01/24 History loperamide 2 mg tablet 2 mg PO TID PRN loose stool 06/02/24 Unknown History magnesium oxide 400 mg (241.3 mg 400 mg PO DAILY 06/02/24 06/01/24 History magnesium) tablet metformin 500 mg tablet,extended 500 mg PO BID 06/02/24 06/01/24 History release 24 hr nitroglycerin 0.4 mg sublingual 0.4 mg sublingual Q5M PRN chest 06/02/24 Unknown History tablet pain nystatin 100,000 unit/gram topical 1 applic topical TID 06/02/24 06/01/24 History powder (Nystop) pantoprazole 40 mg tablet,delayed 40 mg PO BID 06/02/24 06/01/24 History release pregabalin 225 mg capsule 225 mg PO TID 06/02/24 06/01/24 History primidone 50 mg tablet 50 mg PO BID 06/02/24 06/01/24 History promethazine 25 mg tablet 25 mg PO Q8H PRN nausea and 06/02/24 Unknown History vomiting propranolol 10 mg tablet 10 mg PO DAILY 06/02/24 06/01/24 History quetiapine 100 mg tablet 100 - 200 mg PO QHS 06/02/24 06/01/24 History ropinirole 4 mg tablet 4 mg PO QHS 06/02/24 06/01/24 History scopolamine base 1 mg over 3 days 1 patch topical Q3D 06/02/24 05/30/24 History transdermal patch semaglutide 2 mg/dose (8 mg/3 mL) 2 mg subcut TU 06/02/24 05/26/24 History subcutaneous pen injector (Ozempic) sucralfate 1 gram tablet 1 g PO TID 06/02/24 06/01/24 History sumatriptan succinate 100 mg tablet 100 mg PO UD 06/02/24 Unknown History tizanidine 4 mg tablet 4 mg PO 4X/DAY PRN muscle 06/02/24 Unknown History spasticity topiramate 50 mg tablet (Topamax) 50 mg PO BID 06/02/24 06/01/24 History Allergy/AdvReac Type Severity Reaction Status Date / Time daptomycin Allergy Severe Anaphylaxis Verified 06/02/24 15:10 Cephalosporins Allergy Intermediate Rash Verified 06/02/24 15:10 bee venom protein (honey Allergy Rash Verified 06/02/24 15:10 bee) (bee sting) Surgical History (Updated 06/04/24 @ 16:[address] Sushil Gates MD) Endometriosis determined by laparoscopy Partial nontraumatic amputation of right foot History of tonsillectomy and adenoidectomy History of left above knee amputation Status post colostomy Social History Smoking Status: Never smoker Review of Systems (Anesthesia) ROS Narrative System reviewed and no additional complaints, except as documented. Physical Exam Resp Resp Narrative: Lungs are clear.
--- NOTE | 2024-06-04 16:15 | EGD_PTH ---
PATIENT: EAMON SHEEHAN LOC: [facility] U#:[id number] AGE/SX: 54/F ROOM: [facility] RE06/02/[address]: Dr. Adriel Cornejo DO : 1970 BED: 1 DIS: 06/05/2024 SPEC #: [id number] RECD: 06/04/24 17:55 STATUS: MAYRA REQ #: [id number] ALIREZA: 06/04/24 16:[address]: Himanshu Fuentes DEPT: SURGICAL PATHOLOGY RECD BY: Shena Ramos ENTERED: 06/05/24 07:56 SP TYPE: EGD BIOPSY OTHR DR: DO Dr. Jomar Shine MD Dr. Mark Tereletsky, DO Tissues: Esophagus, NOS Procedures: Special Stain Group I Surgery Specimen Level IV GMS Stain (control) Comments: @ Ordering doctor for SUIV edited from to @ ramon BARNES at 06/05/24921 @ Submitting doctor edited from to @ by CAMERON at 06/05/24921 HEADER OPERATION: Colonoscopy with incomplete prep, EGD with biopsy PRE-OP DIAGNOSIS: GI bleed TISSUE SUBMITTED: Random esophagus biopsy MICROSCOPIC DIAGNOSIS Esophagus, random biopsy: Granulation tissue with fibrinopurulent exudate suggestive of ulcer. Negative for fungal organisms. See comment. AM. 06/08/2024 COMMENT GMS stain with matched control was used in the evaluation of this case. MICROSCOPIC DESCRIPTION Slides are reviewed. GROSS DESCRIPTION Received in fixative is one container labeled with the patient's name and designated Random esophagus biopsy. The specimen consists of two irregular fragments of light chase soft tissue that in aggregate measure 0.5 x 0.3 x 0.1 cm. The specimen is totally submitted in one cassette. AM. 06/05/2024 TC:2 CPT:43514,99505
--- NOTE | 2024-06-04 16:52 | HP.PCM_ITS ---
History and Physical Date of Admission: 06/04/24 HPI Narrative Reason for Consultation: GI bleed HPI Narrative: EAMON SHEEHAN, is a 54 F with a past medical history of Crohn's disease; on adalimumab, history of colostomy secondary to nonhealing decubitus ulcer with chronic pain on buprenorphine patch and ibuprofen 800 mg PO TID prn who presented to [facility] [place] [facility] complaining of GI bleed. She reports her symptoms began approximately 1 day prior to admission with blood coming out of her colostomy. She states that yesterday she noted she was passing clots from her colostomy site that have been worsening since that time so she came into the ER for further evaluation and treatment. She states the blood is bright red in nature and denies being on any blood thinning medications or anticoagulants. She denies associated fever, chills, nausea, vomiting or abdominal pain. The ER physician spoke with the cassandra consultant and general surgeon on-call who recommended transfer to tertiary care center if she would need revision of her colostomy given her history of Crohn's disease she would likely need a colorectal surgeon. In the ER her CT scan of the abdomen pelvis revealed colostomy through the left anterior abdominal wall with skin wound over the sacrum with subcutaneous emphysema likely related to decubitus ulcer and skin thickening and subcutaneous edema of the Left gluteal region and left proximal thigh posteriorly along with enlarged spleen with no other acute pathologic changes noted. Due to limited bed availability patient cannot be transferred immediately and has been waiting in the ER over 6 hours and that is hospitals policy to admit patients who will be awaiting prolonged transfer will be admitted to the hospitalist service so they can be cared for until such time transfer becomes available. In the ER she was noted to have a hemoglobin of 7.7 g/dL with an elevated lac tic acid of 2.1 mmol/L and mild hypokalemia of 3.4 mmol/L present on admission in addition to UA grossly positive for acute cystitis; with microscopic hematuria. She was then empirically started on IV vancomycin and IV Zosyn along with IV Protonix drip and multiple doses of IV morphine with 1 L normal saline fluid bolus. [facility] Medical History Decubitus ulcer Hypertension Asthma Insomnia Crohn disease Hypothyroid Diabetes Home Medications ?Medication ?Instructions ?Recorded ?Last Taken ?Type Lactobacillus acidophilus 1 1,000 mmu cells PO DAILY 12/03/24 12/02/24 History billion cell capsule acetaminophen 325 mg tablet 650 mg PO Q6H PRN pain 06/02/24 Unknown History adalimumab 40 mg/0.4 mL 40 mg subcut Q14D 06/02/24 05/19/24 History subcutaneous pen kit (Humira(CF) Pen) albuterol sulfate 2.5 mg/0.5 mL 2.5 mg inhalation Q4H PRN 06/02/24 Unknown History solution for nebulization shortness of breath or wheezing albuterol sulfate 90 mcg/actuation 1 puff inhalation Q4H PRN 06/02/24 Unknown History aerosol inhaler shortness of breath or wheezing alprazolam 0.5 mg tablet 0.5 mg PO DAILY 06/02/24 06/01/24 History amitriptyline 100 mg tablet 100 mg PO QHS 06/02/24 06/01/24 History ascorbic acid (vitamin C) 500 mg 500 mg PO DAILY 06/02/24 06/01/24 History tablet (Vitamin C) atorvastatin 80 mg tablet 80 mg PO DAILY 06/02/24 06/01/24 History buprenorphine 10 mcg/hour weekly 1 patch topical TU 06/02/24 05/26/24 History transdermal patch colestipol 1 gram tablet 2 g PO BID 06/02/24 06/01/24 History cyclosporine 0.05 % eye drops in a 1 drp ophthalmic (eye) Q12H 06/02/24 06/01/24 History dropperette (Restasis) epinephrine 0.3 mg/0.3 mL 0.3 mg IM PRN PRN anaphylaxis 06/02/24 Unknown History injection, auto-injector ergocalciferol (vitamin D2) 1,250 1,250 mcg PO TU 06/02/24 05/26/24 History mcg (50,000 unit) capsule escitalopram oxalate 20 mg tablet 20 mg PO DAILY 06/02/24 06/01/24 History famotidine 20 mg tablet 40 mg PO BID 06/02/24 06/01/24 History fluticasone furoate 200 1 ea inhalation DAILY 06/02/24 06/01/24 History mcg-vilanterol 25 mcg/dose inhalation powder (Breo Ellipta) folic acid 1 mg tablet 1 mg PO DAILY 06/02/24 06/01/24 History furosemide 40 mg tablet 40 mg PO DAILY PRN edema 06/02/24 Unknown History ibuprofen 800 mg tablet 800 mg PO TID PRN pain 06/02/24 Unknown History insulin glargine U-300 conc 300 44 unit subcut DAILY 06/02/24 06/01/24 History unit/mL (1.5 mL) subcutaneous pen (Toujeo SoloStar U-300 Insulin) insulin lispro 100 unit/mL 1 sliding scale dose subcut TIDCM 06/02/24 06/01/24 History subcutaneous pen (Humalog KwikPen (U-100) Insulin) levetiracetam 1,000 mg tablet 1,000 mg PO BID 06/02/24 06/01/24 History levothyroxine 200 mcg tablet 200 mcg PO DAILY 06/02/24 06/01/24 History lidocaine 5 % topical patch 1 patch topical DAILY 06/02/24 06/01/24 History loperamide 2 mg tablet 2 mg PO TID PRN loose stool 06/02/24 Unknown History magnesium oxide 400 mg (241.3 mg 400 mg PO DAILY 06/02/24 06/01/24 History magnesium) tablet metformin 500 mg tablet,extended 500 mg PO BID 06/02/24 06/01/24 History release 24 hr nitroglycerin 0.4 mg sublingual 0.4 mg sublingual Q5M PRN chest 06/02/24 Unknown History tablet pain nystatin 100,000 unit/gram topical 1 applic topical TID 06/02/24 06/01/24 Hi story powder (Nystop) pantoprazole 40 mg tablet,delayed 40 mg PO BID 06/02/24 06/01/24 History release pregabalin 225 mg capsule 225 mg PO TID 06/02/24 06/01/24 History primidone 50 mg tablet 50 mg PO BID 06/02/24 06/01/24 History promethazine 25 mg tablet 25 mg PO Q8H PRN nausea and 06/02/24 Unknown History vomiting propranolol 10 mg tablet 10 mg PO DAILY 06/02/24 06/01/24 History quetiapine 100 mg tablet 100 - 200 mg PO QHS 06/02/24 06/01/24 History ropinirole 4 mg tablet 4 mg PO QHS 06/02/24 06/01/24 History scopolamine base 1 mg over 3 days 1 patch topical Q3D 06/02/24 05/30/24 History transdermal patch semaglutide 2 mg/dose (8 mg/3 mL) 2 mg subcut TU 06/02/24 05/26/24 History subcutaneous pen injector (Ozempic) sucralfate 1 gram tablet 1 g PO TID 06/02/24 06/01/24 History sumatriptan succinate 100 mg tablet 100 mg PO UD 06/02/24 Unknown History tizanidine 4 mg tablet 4 mg PO 4X/DAY PRN muscle 06/02/24 Unknown History spasticity topiramate 50 mg tablet (Topamax) 50 mg PO BID 06/02/24 06/01/24 History Allergy/AdvReac Type Severity Reaction Status Date / Time daptomycin Allergy Severe Anaphylaxis Verified 06/02/24 15:10 Cephalosporins Allergy Intermediate Rash Verified 06/02/24 15:10 bee venom protein (honey Allergy Rash Verified 06/02/24 15:10 bee) (bee sting) Social History Smoking Status: Never smoker ROS ROS Narrative Review of Systems: Constitutional: Patient denies fever or chills. Eyes: Patient denies changes in vision or discharge from eyes. ENT: Patient denies runny nose, sore throat or ear pain. Resp: Patient denies shortness of breath or cough. CV: Patient denies chest pain, palpitations or heart racing. GI: Patient admits to bleeding from her colostomy site with bright red blood and clots as per HPI. She denies nausea or vomiting and is otherwise having normal output. : Patient complains of decreased urinary output and Ibarra catheter. MSK: Patient denies arthralgias or myalgias but she does admit to chronic pain. Skin: Patient has chronic sacral decubitus wound. Psych: Patient denies symptoms of uncontrolled depression or anxiety. Neuro: Patient denies headache, paresthesias or focal neurologic deficits. Allergy: Patient denies lip swelling, tongue swelling or urticaria. Hematology: Patient admits to bleeding from her colostomy site as noted above. Endocrinology: Patient denies polyuria, polydipsia or polyphagia. 14 point review of systems otherwise negative except for positives noted above in HPI. Physical Exam Const alert, oriented x3 and no apparent distress Constitutional Narrative: Patient is obese and appears chronically ill. General Appearance: cooperative HEENT normocephalic, head/scalp atraumatic, hearing grossly normal bilaterally and moist oral mucous membranes Eyes PERRL and EOMs intact bilaterally Neck no lymphadenopathy and supple Resp normal respiratory effort, no retractions, no use of accessory muscles and clear to auscultation bilaterally Cardio regular rate and regular rhythm GI normal to inspection, nondistended, normoactive bowel sounds, soft to palpation, non-tender and non-distended GI Narrative: Blood noted in colostomy bag with colostomy site appearing pink and moist and nontender to palpation. 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 Skin Skin Narrative: Patient has a chronic sacral wound with foul smell but no active drainage coming from site at this time. Neuro oriented x3, CN's II-XII intact bilaterally, moves all extremities and no focal motor deficits Sensorium / Orientation: awake, alert, oriented to person, oriented to place and oriented to time Speech: speech normal Psych affect normal Lab / Micro Data 06/03/24 04:10 06/03/24 04:10 Labs: Laboratory Results - last 24 hr 06/02/24 17:40: Urine RBC 5-10 SEEN, Urine WBC 50-100 SEEN, Ur Squamous Epith Cells 0-5 SEEN, Urine Bacteria 2+, Urine Mucus 0 SEEN 06/02/24 20:35: Lactic Acid 2.1 H* 06/03/24 02:39: POC Glucose 121 H 06/03/24 04:10: WBC 9.4, RBC 3.12 L, Hgb 6.9 L, Hct 24.5 L, MCV 78.5 L, MCH 22.1 L, MCHC 28.2 L, RDW Std Deviation 46.2 H, RDW Coeff of Gerardo 16.7 H, Plt Count 337, MPV 9.4, Immature Gran % (Auto) 0.700, Neut % (Auto) 71.0 H, Lymph % (Auto) 20.0, Gregg % (Auto) 6.7, Eos % (Auto) 1.1, Baso % (Auto) 0.5, Absolute Neuts (auto) 6.7, Absolute Lymphs (auto) 1.88, Nucleated RBC % 0, Sodium 143, Potassium 3.5, Chloride 115 H, Carbon Dioxide 20.0 L, Anion Gap 7, BUN 9, Creatinine 0.90, Estim Creat Clear Calc 80.99, Est GFR (MDRD) Af Amer 84, Est GFR (MDRD) Non-Af 69, BUN/Creatinine Ratio 10.0, Glucose 104, Hemoglobin A1c 5.7 H, Calcium 8.6, Phosphorus 3.9, Magnesium 2.0, Total Bilirubin 0.20, AST 25, ALT 21, Alkaline Phosphatase 269 H, Total Protein 6.5, Albumin 1.8 L, Globulin 4.7 H , Albumin/Globulin Ratio 0.4 L, TSH 0.607 06/03/24 06:29: POC Glucose 83 06/03/24 11:28: POC Glucose 79 06/03/24 18:13: POC Glucose 76 Micro: Microbiology 06/03/24 07:00 Wound - Buttock Gram Stain - Final 06/02/24 17:40 Urine, Clean Catch Urine Culture - Preliminary GNR lactose grocery clerk stocking Assessment & Plan Assessment/Plan (1) GI (gastrointestinal bleed): QUALIFIERS: GI bleed type/associated pathology: unspecified gastrointestinal hemorrhage type Qualified Code(s): K92.2 - Gastrointestinal hemorrhage, unspecified (2) Crohn disease: QUALIFIERS: Gastrointestinal tract location: unspecified location Digestive disease complication type: unspecified complication Qualified Code(s): K50.919 - Crohn's disease, unspecified, with unspecified complications (3) Acute cystitis with hematuria: (4) Decubitus ulcer of sacral area: QUALIFIERS: Pressure injury stage: unspecified pressure injury stage Qualified Code(s): L89.159 - Pressure ulcer of sacral region, unspecified stage (5) Lactic acidosis: (6) Hypokalemia: (7) DM type 2 causing complication: (8) Obesity (BMI 30.0-34.9): PLAN: Plan 54-year-old with iron deficiency anemia and acute GI bleed with bright red blood coming from colostomy site with hemoglobin of 7.7 g/dL present on admission in the setting of known Crohn's disease. Differential diagnosis does include upper GI bleed with rapid transit, stomal bleed, small bowel bleed secondary to inflammatory bowel disease. Recommend upper endoscopy and possible colonoscopy via her colostomy bag and capsule endoscopy. She was explained alternatives, risk and benefits of longstanding bleeding, fracture, sepsis, perforation, need for emergent . She we will have an ASA of 3. I have examined the patient and the H&P has been reviewed. There are no clinical changes since date of exam.
--- NOTE | 2024-06-04 17:05 | PCM.POST.ANE ---
Anesthesia: Postop Eval I Current Vital Signs Temperature: 97 F Pulse Rate: 77 Blood Pressure: 101/71 Respiratory Rate: 16 Pulse Ox: 99 Oxygen Delivery Method: Room Air Assessment Airway patent: No Spontaneous unlabored respirations: No Mental status: Awake and Calm nausea: No Vomiting: No Anesthesia Complication: No Fluid Hydration Crystalloid volume administer (ml): 20 Total IV fluid infused: 20 Progress Note Anesthesia document: Postop Eval 1 completed: Yes
--- NOTE | 2024-06-04 17:06 | POSTOPAN2_ITS ---
Anesthesia Postop Eval I Sum Postop Eval Completion status Anesthesia document: Postop Eval 1 completed: Yes Anesthesia Postop Eval I Summary Anesthesia Postop Eval I Summary: Anesthesia Postop Eval I: Assessment Summary Airway patent No 06/04/24 17:06 AUTOMOTIVE INTERNET SALES CONSULTANT.MDOT Spontaneous unlabored No 06/04/24 17:06 AUTOMOTIVE INTERNET SALES CONSULTANT.MDOT respirations Mental status Awake,Calm 06/04/24 17:06 AUTOMOTIVE INTERNET SALES CONSULTANT.MDOT nausea No 06/04/24 17:06 AUTOMOTIVE INTERNET SALES CONSULTANT.MDOT Vomiting No 06/04/24 17:06 AUTOMOTIVE INTERNET SALES CONSULTANT.MDOT Anesthesia Postop Eval I: Fluid Summary Crystalloid volume administer 20 06/04/24 17:06 AUTOMOTIVE INTERNET SALES CONSULTANT.MDOT (ml) Colloids volume administered ( ml) Blood Product volume administered (ml) Total IV fluid infused 20 06/04/24 17:06 AUTOMOTIVE INTERNET SALES CONSULTANT.CLAU Anesthesia Postop Eval I: Summary Notes Anesthesia Complication No 06/04/24 17:06 AUTOMOTIVE INTERNET SALES CONSULTANT.MDOT Anesthesia Complication Comment: Post-operative progress note Anesthesia: Postop Eval II Evaluation Mental status: Awake and Calm Pain Level: 0 nausea: No Vomiting: No Complications Anesthesia Complication: No
--- NOTE | 2024-06-04 17:06 | PCM.POSTANE2 ---
Anesthesia Postop Eval I Sum Postop Eval Completion status Anesthesia document: Postop Eval 1 completed: Yes Anesthesia Postop Eval I Summary Anesthesia Postop Eval I Summary: Anesthesia Postop Eval I: Assessment Summary Airway patent No 06/04/24 17:06 WORKERS COMPENSATION COORDINATOR.MDOT Spontaneous unlabored No 06/04/24 17:06 WORKERS COMPENSATION COORDINATOR.MDOT respirations Mental status Awake,Calm 06/04/24 17:06 WORKERS COMPENSATION COORDINATOR.MDOT nausea No 06/04/24 17:06 WORKERS COMPENSATION COORDINATOR.MDOT Vomiting No 06/04/24 17:06 WORKERS COMPENSATION COORDINATOR.MDOT Anesthesia Postop Eval I: Fluid Summary Crystalloid volume administer 20 06/04/24 17:06 WORKERS COMPENSATION COORDINATOR.MDOT (ml) Colloids volume administered ( ml) Blood Product volume administered (ml) Total IV fluid infused 20 06/04/24 17:06 WORKERS COMPENSATION COORDINATOR.CLAU Anesthesia Postop Eval I: Summary Notes Anesthesia Complication No 06/04/24 17:06 WORKERS COMPENSATION COORDINATOR.MDOT Anesthesia Complication Comment: Post-operative progress note Anesthesia: Postop Eval II Evaluation Mental status: Awake and Calm Pain Level: 0 nausea: No Vomiting: No Complications Anesthesia Complication: No
--- NOTE | 2024-06-04 17:15 | OP.EGD_ITS ---
Patient Name: Gayatri Blanca Procedure Date: 06/04/2024 4:42 PM Date of : 1970 Age: 54 Procedure: Upper GI endoscopy Indications: Melena Providers: Himanshu Fuentes DO Medicines: Monitored Anesthesia Care Patient Profile: This is a 54 year old female. Patient has symptoms of chronic nausea. Complications: No immediate complications. Procedure: Pre-Anesthesia Assessment: - Prior to the procedure, a History and Physical was performed, and patient medications and allergies were reviewed. The patient is competent. The risks and benefits of the procedure and the sedation options and risks were discussed with the patient. All questions were answered and informed consent was obtained. Patient identification and proposed procedure were verified by the physician in the pre-procedure area. Mental Status Examination: alert and oriented. Airway Examination: normal oropharyngeal airway and neck mobility. Respiratory Examination: clear to auscultation. CV Examination: normal. Prophylactic Antibiotics: The patient does not require prophylactic antibiotics. Prior Anticoagulants: The patient has taken no anticoagulant or antiplatelet agents. ASA Grade Assessment: III - A patient with severe systemic disease. After reviewing the risks and benefits, the patient was deemed in satisfactory condition to undergo the procedure. The anesthesia plan was to use monitored anesthesia care (MAC). Immediately prior to administration of medications, the patient was re-assessed for adequacy to receive sedatives. The heart rate, respiratory rate, oxygen saturations, blood pressure, adequacy of pulmonary ventilation, and response to care were monitored throughout the procedure. The physical status of the patient was re-assessed after the procedure. After obtaining informed consent, the endoscope was passed under direct vision. Throughout the procedure, the patient's blood pressure, pulse, and oxygen saturations were monitored continuously. The Colonoscope was introduced through the mouth, and advanced to the second part of duodenum. The upper GI endoscopy was accomplished without difficulty. The patient tolerated the procedure well. Scope In: 4:54:19 PM Scope Out: 4:57:01 PM Total Procedure Duration Time 0 hours 2 minutes 42 seconds Findings: LA Grade D (one or more mucosal breaks involving at least 75% of esophageal circumference) esophagitis with bleeding was found 34 to 40 cm from the incisors. Biopsies were taken with a cold forceps for histology. Verification of patient identification for the specimen was done. Estimated blood loss was minimal. A large amount of food (residue) was found in the entire examined stomach. No gross lesions were noted in the first portion of the duodenum. Impression: - LA Grade D erosive esophagitis with bleeding. Biopsied. - A large amount of food (residue) in the stomach. - No gross lesions in the first portion of the duodenum. Recommendation: - [facility]. - Resume previous diet. - Continue present medications. - Await pathology results. Procedure Code(s): --- Professional --- 62332, Esophagogastroduodenoscopy, flexible, transoral; with biopsy, single or multiple CPT copyright 2021 [employer]. All rights reserved. The codes documented in this report are preliminary and upon germination testing manager review may be revised to meet current compliance requirements. Himanshu Fuentes DO 06/04/2024 5:15:17 PM This report has been signed electronically. Number of Addenda: 0 Note Initiated On: 06/04/2024 4:42 PM
--- NOTE | 2024-06-04 17:15 | OP.CCLET_ITS ---
06/04/2024 Jomar Kellogg MD Re : Upper GI endoscopy procedure for Gayatri Blanca Dear Dr. Kellogg This procedure was performed on May. My impressions and recommendations are as follows: Impressions : - LA Grade D erosive esophagitis with bleeding. Biopsied. - A large amount of food (residue) in the stomach. - No gross lesions in the first portion of the duodenum. Recommendations : - [facility] to [facility]. - Resume previous diet. - Continue present medications. - Await pathology results. My findings are described in the full procedure note, which is enclosed. If I can be of further assistance, please feel free to contact me at . Sincerely, Himanshu Fuentes, 06/04/2024 5:15:17 PM This report has been signed electronically.
--- NOTE | 2024-06-04 17:19 | OP.CCLET_ITS ---
06/04/2024 Jomar Kellogg MD Re : Colonoscopy procedure for Gayatri Blanca Dear Dr. Kellogg This procedure was performed on May. My impressions and recommendations are as follows: Impressions : - Preparation of the colon was poor. - Widely patent end colostomy with healthy appearing mucosa in the sigmoid colon. - Stool in the entire examined colon. - No specimens collected. Recommendations : - Discharge patient to home. - Repeat colonoscopy because the bowel preparation was poor. - Continue present medications. My findings are described in the full procedure note, which is enclosed. If I can be of further assistance, please feel free to contact me at . Sincerely, Himanshu Fuentes, 06/04/2024 5:19:20 PM This report has been signed electronically.
--- NOTE | 2024-06-04 17:19 | OP.COLON_ITS ---
Patient Name: Gayatri Blanca Procedure Date: 06/04/2024 4:57 PM Date of : 1970 Age: 54 Procedure: Colonoscopy Indications: Gastrointestinal bleeding Providers: Himanshu Fuentes DO Medicines: Monitored Anesthesia Care Patient Profile: Last Colonoscopy: date unknown. Unable to locate last colonoscopy report. This is a 54 year old female. Patient has symptoms of chronic nausea. Complications: No immediate complications. Procedure: Pre-Anesthesia Assessment: - Prior to the procedure, a History and Physical was performed, and patient medications and allergies were reviewed. The patient is competent. The risks and benefits of the procedure and the sedation options and risks were discussed with the patient. All questions were answered and informed consent was obtained. Patient identification and proposed procedure were verified by the physician in the pre-procedure area. Mental Status Examination: alert and oriented. Airway Examination: normal oropharyngeal airway and neck mobility. Respiratory Examination: clear to auscultation. CV Examination: normal. Prophylactic Antibiotics: The patient does not require prophylactic antibiotics. Prior Anticoagulants: The patient has taken no anticoagulant or antiplatelet agents. ASA Grade Assessment: III - A patient with severe systemic disease. After reviewing the risks and benefits, the patient was deemed in satisfactory condition to undergo the procedure. The anesthesia plan was to use monitored anesthesia care (MAC). Immediately prior to administration of medications, the patient was re-assessed for adequacy to receive sedatives. The heart rate, respiratory rate, oxygen saturations, blood pressure, adequacy of pulmonary ventilation, and response to care were monitored throughout the procedure. The physical status of the patient was re-assessed after the procedure. After I obtained informed consent, the scope was passed under direct vision. Throughout the procedure, the patient's blood pressure, pulse, and oxygen saturations were monitored continuously. The Colonoscope was introduced through the anus and advanced to the hepatic flexure. The colonoscopy was performed without difficulty. The patient tolerated the procedure well. The quality of the bowel preparation was poor. Scope In: Scope Out: Findings: There was evidence of a widely patent end colostomy in the sigmoid colon. This was characterized by healthy appearing mucosa. Extensive amounts of liquid semi-liquid semi-solid solid stool was found in the entire colon, precluding visualization. Impression: - Preparation of the colon was poor. - Widely patent end colostomy with healthy appearing mucosa in the sigmoid colon. - Stool in the entire examined colon. - No specimens collected. Recommendation: - Discharge patient to home. - Repeat colonoscopy because the bowel preparation was poor. - Continue present medications. Procedure Code(s): --- Professional --- 55464, 53, Colonoscopy, flexible; diagnostic, including collection of specimen(s) by brushing or washing, when performed (separate procedure) CPT copyright 2021 [employer]. All rights reserved. The codes documented in this report are preliminary and upon tax expert review may be revised to meet current compliance requirements. Himanshu Fuentes DO 06/04/2024 5:19:20 PM This report has been signed electronically. Number of Addenda: 0 Note Initiated On: 06/04/2024 4:57 PM
--- NOTE | 2024-06-04 18:01 | PN.HOSP_ITS ---
Reason for Visit Reason for Visit: Diagnoses Type 2 diabetes mellitus with unspecified complications (06/02/24) Obesity, class 1 (06/02/24) Acidosis, unspecified (06/02/24) Hypokalemia (06/02/24) Crohn's disease, unspecified, with unspecified complications (06/02/24) Gastrointestinal hemorrhage, unspecified (06/02/24) Pressure ulcer of sacral region, unspecified stage (06/02/24) Acute cystitis with hematuria (06/02/24) Subjective Subjective Patient was seen and examined today, hemoglobin was 8.6 this morning. EGD today showed reflux esophagitis, patient's colonoscopy showed a poor colon prep, no evidence of bleeding was noted. Objective Data Objective Data Vital Signs: Vital Signs Temp Pulse Resp BP Pulse Ox O2 Del Method 97.8 F 72 16 124/71 H 96 Room Air 06/04/24 17:50 06/04/24 17:50 06/04/24 17:50 06/04/24 17:50 06/04/24 17:50 06/04/24 17:50 Oxygen Delivery Method Room Air Weight: 85.6 kg Body Mass Index (BMI) 29.5 Intake & Output: Intake and Output for Last 24 Hours 06/02/24 06/03/24 06/04/24 23:59 23:59 23:59 Intake Total 1193.3 / 1193.3 1135.33 / 1135.33 975 / 975 Output Total 500 / 1000 2200 / 2200 Balance 1193.3 / 1193.3 635.33 / 135.33 -1225 / -1225 Lab / Micro Data 06/04/24 05:14 06/03/24 04:10 Labs: Laboratory Results - last 24 hr 06/02/24 15:18: Crossmatch See Detail 06/03/24 18:13: POC Glucose 76 06/04/24 00:45: POC Glucose 83 06/04/24 05:14: WBC 7.4, RBC 3.61 L, Hgb 8.6 L, Hct 28.1 L, MCV 77.8 L, MCH 23.8 L, MCHC 30.6 L D, RDW Std Deviation 47.3 H, RDW Coeff of Gerardo 16.8 H, Plt Count 379, MPV 9.0, Immature Gran % (Auto) 0.700, Neut % (Auto) 59.7, Lymph % (Auto) 28.2, [place] % (Auto) 8.0, Eos % (Auto) 2.6, Baso % (Auto) 0.8, Absolute Neuts (auto) 4.4, Absolute Lymphs (auto) 2.08, Nucleated RBC % 0, Phosphorus 4.0, Magnesium 1.9 06/04/24 06:17: POC Glucose 79 06/04/24 08:25: Urine Test Negative 06/04/24 12:34: POC Glucose 63 L Micro: Microbiology 06/02/24 15:32 Blood Culture (Wb) - Anticubital Right Blood Culture - Preliminary No growth in 48 hours. 06/02/24 15:32 Blood Culture (Wb) - Anticubital Left Blood Culture - Preliminary No growth in 48 hours. 06/03/24 07:00 Wound - Buttock Gram Stain - Final 06/03/24 07:00 Wound - Buttock Wound Culture - Preliminary Mixed Gram Pos & Gram Neg Org 06/02/24 17:40 Urine, Clean Catch Urine Culture - Preliminary ESBL Klebsiella pneumoniae pne Physical Exam Narrative alert, oriented x3, no apparent distress and healthy appearing General Appearance: cooperative, well kempt and well developed Orientation / Consciousness: awake, oriented to person, oriented to place and oriented to time HEENT normocephalic, head/scalp atraumatic and moist oral mucous membranes Eyes PERRL, EOMs intact bilaterally and conjunctivae normal Neck supple, no JVD, thyroid normal and no carotid bruits General: trachea midline Resp normal respiratory effort and clear to auscultation bilaterally Auscultation: Negative for rales, rhonchi or wheezes Cardio regular rate, regular rhythm, S1 normal heart sound, S2 normal heart sound, no murmurs, no rub and no gallops GI normal to inspection, nondistended, normoactive bowel sounds, soft to palpation, non-tender and non-distended Extremity Extremity Narrative: 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 Skin Skin Narrative: Patient has a large sacral stage IV decubitus noted, there is no purulent drainage from the area however Neuro oriented x3, CN's II-XII intact bilaterally, moves all extremities, no focal motor deficits and no sensory deficits noted Sensorium / Orientation: awake and alert Speech: speech normal Psych affect normal Assessment & Plan Assessment/Plan (1) Anemia: (2) Acute cystitis with hematuria: PLAN: Plan #1 GI bleed with bright red blood from colostomy site, no evidence of bleeding was noted on the patient's colonoscopy, CBC will be repeated tomorrow #2 acute cystitis-patient had ESBL in her urine, it is sensitive to Augmentin so I changed the patient to oral Augmentin today #3 chronic sacral decubitus-the wound nurse saw the patient today and states that the area does not look grossly infected, continue treatment per wound nurse #4 type 2 diabetes-blood sugars will be monitored, sliding scale insulin will be given as needed Total clinical time spent by myself addressing the patient's medical issues, reviewing all of her data, and collaborating with patient's care team: 35- minutes Charges/Coding Visit Charges Inpatient E&M: 31197 Subs Hosp L2
[2024-06-04 18:58] LABS: Bedside Glucose 68 mg/dL (74-106)
[2024-06-04] MEDS: MELATONIN 3 MG TABLET 6 MG PO (23:51)
[2024-06-04] MEDS: Ondansetron 4 MG/2 ML Vial IV (23:56)
[2024-06-05 00:11] LABS: Bedside Glucose 84 mg/dL (74-106)
[2024-06-05 03:42] VITALS: BP 148/78; PULSE 85; RESP 16; TEMP 36.8; O2SAT 98
[2024-06-05] MEDS: HYDROmorphone 0.5 MG/0.5 ML SYRINGE IV ×3 (03:47→13:45)
[2024-06-05] MEDS: 0.9% Saline Lock 10 ML Syringe IV (03:47)
[2024-06-05 04:44] VITALS: BMI 28.9
[2024-06-05] MEDS: Nystatin Powder 15gm Bottle 1 APPLIC TOPICAL ×2 (05:59→13:46)
[2024-06-05 06:17] LABS: Bedside Glucose 77 mg/dL (74-106)
[2024-06-05 06:45] VITALS: PULSE 88; RESP 20; O2SAT 95
[2024-06-05] MEDS: Budesonide Respules 0.5 MG/2 ML AMPUL.NEB. INHALATION (06:45)
[2024-06-05] MEDS: Albuterol 2.5 MG/3 ML VIAL.NEB. INHALATION (06:45)
[2024-06-05] MEDS: Ondansetron 4 MG/2 ML Vial IV ×2 (07:05→16:14)
[2024-06-05 07:19] LABS: Absolute Lymphocyte Count 2.13 X10^3/uL (0.83-4.51); Absolute Neutrophil Count 4.9 X10^3/uL (2.0-7.7); Basophil# 0.05 X10^3/uL; Basophil% 0.6 % (0-1); Eosinophil# 0.21 X10^3/uL; Eosinophils% 2.6 % (0-5); Hematocrit 28.8 % (37-47); Hemoglobin 8.7 g/dL (12.0-15.0); Lymphocyte # 2.13 X10^3/ul (0.83-4.51); Lymphocyte % 26.8 % (19-41); Mean Corp Hgb Conc 30.2 g/dL (32-36); Mean Corpuscular Hgb 23.3 pg (27.0-32.0); Mean Platelet Vol. 8.7 fl (6.2-12.0); Monocyte# 0.59 X10^3/uL; Monocyte% 7.4 % (0-10); NRBC Flagged by Analyzer 0 % (0-5); Neutrophil # 4.88 X10^3/uL (2.7-7.7); Neutrophil % 61.6 % (47-70); Platelet Count 332 K/mm3 (150-450); RBC Distribution Width SD 46.9 fl (35.1-43.9); Red Blood Count 3.74 M/mm3 (4.2-5.4); White Blood Count 7.9 K/mm3 (4.4-11.0)
[2024-06-05 07:27] LABS: Bedside Glucose 89 mg/dL (74-106)
[2024-06-05 09:00] VITALS: BP 144/79; PULSE 82; RESP 16; TEMP 36.1; O2SAT 98
[2024-06-05] MEDS: Amox/Clavulanate 875 MG Tablet PO (09:26)
[2024-06-05] MEDS: Lidocaine 5% Patch 1 PATCH TOPICAL (09:28)
[2024-06-05] MEDS: levETIRAcetam IV 1,000 MG/100 ML BAG 400 MG IV (09:28)
[2024-06-05 09:40] LABS: Bedside Glucose 86 mg/dL (74-106)
[2024-06-05 09:41] VITALS: BP 155/95; PULSE 82; RESP 16; TEMP 36.1; O2SAT 98
--- NOTE | 2024-06-05 12:18 | PCM.DC ---
Discharge Instructions Diet Discharge Diet: 1800 Calorie Control Diet DC O2, CPAP, BIPAP needs Additional Home O2 Discharge instructions: No Dressing / Incision Discharge Activity: Return to Normal Activity Weight Bearing Status: - (Resume previous activity level) Follow Up Care Test Results: Test results from this visit will be discussed in further detail at your follow-up appointment, if applicable. Discharge Plan Admission Admit Date/Time: 06/02/24 23:05 Primary Reason for Your Visit: GI bleed requiring blood transfusion Attending Provider: Adriel Cornejo Primary Care Provider: Jomar Kellogg Consulting Providers: Emmanuel Graff Discharge Orders/Prescriptions Prescriptions: New HySept 0.25 % Solution See Protocol topical BID Qty: 0 0RF Protocol: *Topical Application Instructions APPLICATION INSTRUCTIONS: sacral wound insulin glargine-yfgn 100 unit/mL (3 mL) Insulin Pen 10 unit subcut DAILY Qty: 0 0RF alprazolam [Xanax] 1 mg tablet 1 mg PO BID Qty: 60 0RF oxycodone 10 mg tablet 10 mg PO Q4H PRN PRN (Reason: pain) 7 Days Qty: 42 0RF doxycycline monohydrate 100 mg tablet 100 mg PO BID Qty: 10 0RF Continued quetiapine 100 mg tablet 100 - 200 mg PO QHS escitalopram oxalate 20 mg tablet 20 mg PO DAILY propranolol 10 mg tablet 10 mg PO DAILY Ozempic 2 mg/dose (8 mg/3 mL) pen injector 2 mg subcut TU amitriptyline 100 mg tablet 100 mg PO QHS colestipol 1 gram tablet 2 g PO BID buprenorphine 10 mcg/hour patch weekly 1 patch topical TU lidocaine 5 % adhesive patch,medicated 1 patch topical DAILY pregabalin 225 mg capsule 225 mg PO TID tizanidine 4 mg tablet 4 mg PO 4X/DAY PRN (Reason: muscle spasticity) insulin lispro [Humalog KwikPen Insulin] 100 unit/mL insulin pen 1 sliding scale dose subcut TIDCM Protocol: 6. Sliding Scale Insulin Custom Condition: mg/dl range Dose/Route: Number of Units Condition: 151-200 Dose/Route: 2 Condition: 201-250 Dose/Route: 4 Condition: 251-300 Dose/Route: 6 Condition: 301-350 Dose/Route: 8 Condition: 351-400 Dose/Route: 10 Protocol Text: Custom Sliding Scale Rx Instructions: TAKE 12 UNITS WITH BREAKFAST, 10 UNITS WITH LUNCH, AND 12 UNITS WITH DINNER PLUS SLIDING SCALE. MAX DAILY DOSE 60 UNITS Lactobacillus acidophilus 1 billion cell capsule 1,000 mmu cells PO DAILY primidone 50 mg tablet 50 mg PO BID famotidine 20 mg tablet 40 mg PO BID pantoprazole 40 mg tablet,delayed release (DR/EC) 40 mg PO BID scopolamine base 1 mg over 3 days patch 3 day 1 patch topical Q3D atorvastatin 80 mg tablet 80 mg PO DAILY albuterol sulfate 90 mcg/actuation HFA aerosol inhaler 1 puff inhalation Q4H PRN (Reason: shortness of breath or wheezing) ropinirole 4 mg tablet 4 mg PO QHS Humira(CF) Pen 40 mg/0.4 mL pen injector kit 40 mg subcut Q14D ascorbic acid (vitamin C) [Vitamin C] 500 mg tablet 500 mg PO DAILY epinephrine 0.3 mg/0.3 mL auto-injector 0.3 mg IM PRN PRN (Reason: anaphylaxis) fluticasone furoate-vilanterol [Breo Ellipta] 200-25 mcg/dose blister with device 1 ea inhalation DAILY ergocalciferol (vitamin D2) 1,250 mcg (50,000 unit) capsule 1,250 mcg PO TU promethazine 25 mg tablet 25 mg PO Q8H PRN (Reason: nausea and vomiting) levothyroxine 200 mcg tablet 200 mcg PO DAILY nystatin [Nystop] 100,000 unit/gram powder 1 applic topical TID levetiracetam 1,000 mg tablet 1,000 mg PO BID acetaminophen 325 mg tablet 650 mg PO Q6H PRN (Reason: pain) folic acid 1 mg tablet 1 mg PO DAILY loperamide 2 mg tablet 2 mg PO TID PRN (Reason: loose stool) sumatriptan succinate 100 mg tablet 100 mg PO UD sucralfate 1 gram tablet 1 g PO TID magnesium oxide 400 mg (241.3 mg magnesium) tablet 400 mg PO DAILY metformin 500 mg tablet extended release 24 hr 500 mg PO BID cyclosporine [Restasis] 0.05 % dropperette 1 drp ophthalmic (eye) Q12H Patient Comments: [NO ORIGINAL SIG] Rx Instructions: BOTH EYES nitroglycerin 0.4 mg tablet, sublingual 0.4 mg sublingual Q5M PRN (Reason: chest pain) Rx Instructions: do not exceed 3 doses per episode topiramate [Topamax] 50 mg tablet 50 mg PO BID furosemide 40 mg tablet 40 mg PO DAILY PRN (Reason: edema) albuterol sulfate 2.5 mg/0.5 mL solution for nebulization 2.5 mg inhalation Q4H PRN (Reason: shortness of breath or wheezing) Discontinued alprazolam 0.5 mg tablet 0.5 mg PO DAILY ibuprofen 800 mg tablet 800 mg PO TID PRN (Reason: pain) No Action insulin glargine U-300 conc [Toujeo SoloStar U-300 Insulin] 300 unit/mL (1.5 mL) insulin pen 44 unit subcut DAILY Referrals / Follow Up: Jomar Kellogg MD [Primary Care Provider] - Disposition Disposition (needs filled in before D/C Order can be placed): Home, Self Care
--- NOTE | 2024-06-05 12:34 | DS.PCM_ITS ---
Providers Date of Admission: 06/02/24 Date of Discharge: 06/05/24 Primary Care Physician: Dr. Jomar Kellogg MD Consultations 06/03/24 00:20 Consult: Onc/Wound/sales representative groceries Routine Comment: Reason for Consult:: Sacral Decubitus Ulcer. 06/03/24 00:22 Consult: Onc/Wound/sales representative groceries Routine Comment: 06/03/24 11:12 Consult: Gastroenterology Routine Consulting Provider: Debra Gastroentersergei Reason for Consult: gi bleed EMERGENT Consult: No MD Notified: Yes Date Notified: 06/03/24 Time Notified: 11:12 Method of Notification: Verbal Reason For Visit: GI BLEED FROM COLOSTOMY AND ACUTE CYSTITIS; WITH Diagnosis Discharge Diagnosis (1) Anemia: Status: Acute Code(s): D64.9 - Anemia, unspecified (2) Acute cystitis with hematuria: Status: Acute Code(s): N30.01 - Acute cystitis with hematuria Plan #1 GI bleed with bright red blood from colostomy site, no evidence of bleeding was noted on the patient's colonoscopy, CBC will be repeated tomorrow #2 acute cystitis-patient had ESBL in her urine, it is sensitive to Augmentin so I changed the patient to oral Augmentin today #3 chronic sacral decubitus-the wound nurse saw the patient today and states that the area does not look grossly infected, continue treatment per wound nurse #4 type 2 diabetes-blood sugars will be monitored, sliding scale insulin will be given as needed Total clinical time spent by myself addressing the patient's medical issues, reviewing all of her data, and collaborating with patient's care team: 35- minutes Medications at Discharge Home Medications Lactobacillus acidophilus 1 billion cell capsule 1,000 mmu cells PO DAILY 06/02/24 acetaminophen 325 mg tablet 650 mg PO Q6H PRN pain 06/02/24 adalimumab 40 mg/0.4 mL subcutaneous pen kit (Humira(CF) Pen) 40 mg subcut Q14D 06/02/24 albuterol sulfate 2.5 mg/0.5 mL solution for nebulization 2.5 mg inhalation Q4H PRN shortness of breath or wheezing 06/02/24 albuterol sulfate 90 mcg/actuation aerosol inhaler 1 puff inhalation Q4H PRN shortness of breath or wheezing 06/02/24 amitriptyline 100 mg tablet 100 mg PO QHS 06/02/24 ascorbic acid (vitamin C) 500 mg tablet (Vitamin C) 500 mg PO DAILY 06/02/24 atorvastatin 80 mg tablet 80 mg PO DAILY 06/02/24 buprenorphine 10 mcg/hour weekly transdermal patch 1 patch topical TU 06/02/24 colestipol 1 gram tablet 2 g PO BID 06/02/24 cyclosporine 0.05 % eye drops in a dropperette (Restasis) 1 drp ophthalmic (eye) Q12H 06/02/24 epinephrine 0.3 mg/0.3 mL injection, auto-injector 0.3 mg IM PRN PRN anaphylaxis 06/02/24 ergocalciferol (vitamin D2) 1,250 mcg (50,000 unit) capsule 1,250 mcg PO TU 06/02/24 escitalopram oxalate 20 mg tablet 20 mg PO DAILY 06/02/24 famotidine 20 mg tablet 40 mg PO BID 06/02/24 fluticasone furoate 200 mcg-vilanterol 25 mcg/dose inhalation powder (Breo Ellipta) 1 ea inhalation DAILY 06/02/24 folic acid 1 mg tablet 1 mg PO DAILY 06/02/24 furosemide 40 mg tablet 40 mg PO DAILY PRN edema 06/02/24 insulin glargine U-300 conc 300 unit/mL (1.5 mL) subcutaneous pen (Toujeo SoloStar U-300 Insulin) 44 unit subcut DAILY 06/02/24 insulin lispro 100 unit/mL subcutaneous pen (Humalog KwikPen (U-100) Insulin) 1 sliding scale dose subcut TIDCM 06/02/24 levetiracetam 1,000 mg tablet 1,000 mg PO BID 06/02/24 levothyroxine 200 mcg tablet 200 mcg PO DAILY 06/02/24 lidocaine 5 % topical patch 1 patch topical DAILY 06/02/24 loperamide 2 mg tablet 2 mg PO TID PRN loose stool 06/02/24 magnesium oxide 400 mg (241.3 mg magnesium) tablet 400 mg PO DAILY 06/02/24 metformin 500 mg tablet,extended release 24 hr 500 mg PO BID 06/02/24 nitroglycerin 0.4 mg sublingual tablet 0.4 mg sublingual Q5M PRN chest pain 06/02/24 nystatin 100,000 unit/gram topical powder (Nystop) 1 applic topical TID 06/02/24 pantoprazole 40 mg tablet,delayed release 40 mg PO BID 06/02/24 pregabalin 225 mg capsule 225 mg PO TID 06/02/24 primidone 50 mg tablet 50 mg PO BID 06/02/24 promethazine 25 mg tablet 25 mg PO Q8H PRN nausea and vomiting 06/02/24 propranolol 10 mg tablet 10 mg PO DAILY 06/02/24 quetiapine 100 mg tablet 100 - 200 mg PO QHS 06/02/24 ropinirole 4 mg tablet 4 mg PO QHS 06/02/24 scopolamine base 1 mg over 3 days transdermal patch 1 patch topical Q3D 06/02/24 semaglutide 2 mg/dose (8 mg/3 mL) subcutaneous pen injector (Ozempic) 2 mg subcut TU 06/02/24 sucralfate 1 gram tablet 1 g PO TID 06/02/24 sumatriptan succinate 100 mg tablet 100 mg PO UD 06/02/24 tizanidine 4 mg tablet 4 mg PO 4X/DAY PRN muscle spasticity 06/02/24 topiramate 50 mg tablet (Topamax) 50 mg PO BID 06/02/24 alprazolam 1 mg tablet (Xanax) 1 mg PO BID #60 tabs 06/05/24 doxycycline monohydrate 100 mg tablet 100 mg PO BID #10 tabs 06/05/24 insulin glargine-yfgn 100 unit/mL (3 mL) subcutaneous pen 10 unit (0.1 mL) subcut DAILY #0 mL 06/05/24 oxycodone 10 mg tablet 10 mg PO Q4H PRN PRN pain 7 days #42 tabs 06/05/24 sodium hypochlorite 0.25 % solution (HySept) See Protocol topical BID #0 mL 06/05/24 Weight / BMI Weight Weight: 83.7 kg Body Mass Index (BMI) 28.9 ABG / Lab / Microbiology Data 06/05/24 07:01 06/03/24 04:10 Laboratory: Laboratory Results - last 24 hr 06/04/24 12:34: POC Glucose 63 L 06/04/24 18:39: POC Glucose 68 L 06/04/24 23:49: POC Glucose 84 06/05/24 05:56: POC Glucose 77 06/05/24 07:01: WBC 7.9, RBC 3.74 L, Hgb 8.7 L, Hct 28.8 L, MCV 77.0 L, MCH 23.3 L, MCHC 30.2 L, RDW Std Deviation 46.9 H, RDW Coeff of Gerardo 17.0 H, Plt Count 332, MPV 8.7, Immature Gran % (Auto) 1.000 H, Neut % (Auto) 61.6, Lymph % (Auto) 26.8, [place] % (Auto) 7.4, Eos % (Auto) 2.6, Baso % (Auto) 0.6, Absolute Neuts (auto) 4.9, Absolute Lymphs (auto) 2.13, Nucleated RBC % 0 06/05/24 07:08: POC Glucose 89 06/05/24 09:13: POC Glucose 86 Microbiology: Microbiology 06/02/24 17:40 Urine, Clean Catch Urine Culture - Final ESBL Klebsiella pneumoniae pne 06/02/24 15:32 Blood Culture (Wb) - Anticubital Right Blood Culture - Preliminary No growth in 48 hours. 06/02/24 15:32 Blood Culture (Wb) - Anticubital Left Blood Culture - Preliminary No growth in 48 hours. 06/03/24 07:00 Wound - Buttock Gram Stain - Final 06/03/24 07:00 Wound - Buttock Wound Culture - Preliminary Mixed Gram Pos & Gram Neg Org D/C Instructions Discharge Diet: 1800 Calorie Control Diet Weight Bearing Status: - (Resume previous activity level) DC O2, CPAP, BIPAP Needs Additional Home O2 Discharge instructions: No DC home with Oxygen: No Meaningful Use Info Meaningful Use Meaningful Use Diagnoses (Choose all that apply): None applicable Ischemic Stroke Statin Dosing Therapy Reference: STATIN DOSE THERAPY REFERENCE: * Patients > 75 years receive moderate or high dose statin therapy. * Patients 75 years or YOUNGER should receive HIGH intensity statin dose unless contraindicated. You will be required to document reason for non-treatment if statin daily dose does not meet guidelines. HIGH DOSE STATIN THERAPY DAILY Atorvastatin > than or = to 40 mg Rosuvastatin > than or = to 20 mg Amlodipine + Atorvastatin > than or = to 2.5/40 mg Ezetimibe + Simvastatin 10/80 mg Simvastatin 80mg Discharge Plan Admission Admit Date/Time: 06/02/24 23:05 Primary Reason for Your Visit: GI bleed requiring blood transfusion Attending Provider: Adriel Cornejo Primary Care Provider: Jomar Kellogg Consulting Providers: Emmanuel Graff Discharge Orders/Prescriptions Prescriptions: New HySept 0.25 % Solution See Protocol topical BID Qty: 0 0RF Protocol: *Topical Application Instructions APPLICATION INSTRUCTIONS: sacral wound insulin glargine-yfgn 100 unit/mL (3 mL) Insulin Pen 10 unit subcut DAILY Qty: 0 0RF alprazolam [Xanax] 1 mg tablet 1 mg PO BID Qty: 60 0RF oxycodone 10 mg tablet 10 mg PO Q4H PRN PRN (Reason: pain) 7 Days Qty: 42 0RF doxycycline monohydrate 100 mg tablet 100 mg PO BID Qty: 10 0RF Continued quetiapine 100 mg tablet 100 - 200 mg PO QHS escitalopram oxalate 20 mg tablet 20 mg PO DAILY propranolol 10 mg tablet 10 mg PO DAILY Ozempic 2 mg/dose (8 mg/3 mL) pen injector 2 mg subcut TU amitriptyline 100 mg tablet 100 mg PO QHS colestipol 1 gram tablet 2 g PO BID buprenorphine 10 mcg/hour patch weekly 1 patch topical TU lidocaine 5 % adhesive patch,medicated 1 patch topical DAILY pregabalin 225 mg capsule 225 mg PO TID tizanidine 4 mg tablet 4 mg PO 4X/DAY PRN (Reason: muscle spasticity) insulin lispro [Humalog KwikPen Insulin] 100 unit/mL insulin pen 1 sliding scale dose subcut TIDCM Protocol: 6. Sliding Scale Insulin Custom Condition: mg/dl range Dose/Route: Number of Units Condition: 151-200 Dose/Route: 2 Condition: 201-250 Dose/Route: 4 Condition: 251-300 Dose/Route: 6 Condition: 301-350 Dose/Route: 8 Condition: 351-400 Dose/Route: 10 Protocol Text: Custom Sliding Scale Rx Instructions: TAKE 12 UNITS WITH BREAKFAST, 10 UNITS WITH LUNCH, AND 12 UNITS WITH DINNER PLUS SLIDING SCALE. MAX DAILY DOSE 60 UNITS Lactobacillus acidophilus 1 billion cell capsule 1,000 mmu cells PO DAILY primidone 50 mg tablet 50 mg PO BID famotidine 20 mg tablet 40 mg PO BID pantoprazole 40 mg tablet,delayed release (DR/EC) 40 mg PO BID scopolamine base 1 mg over 3 days patch 3 day 1 patch topical Q3D atorvastatin 80 mg tablet 80 mg PO DAILY albuterol sulfate 90 mcg/actuation HFA aerosol inhaler 1 puff inhalation Q4H PRN (Reason: shortness of breath or wheezing) ropinirole 4 mg tablet 4 mg PO QHS Humira(CF) Pen 40 mg/0.4 mL pen injector kit 40 mg subcut Q14D ascorbic acid (vitamin C) [Vitamin C] 500 mg tablet 500 mg PO DAILY epinephrine 0.3 mg/0.3 mL auto-injector 0.3 mg IM PRN PRN (Reason: anaphylaxis) fluticasone furoate-vilanterol [Breo Ellipta] 200-25 mcg/dose blister with device 1 ea inhalation DAILY ergocalciferol (vitamin D2) 1,250 mcg (50,000 unit) capsule 1,250 mcg PO TU promethazine 25 mg tablet 25 mg PO Q8H PRN (Reason: nausea and vomiting) levothyroxine 200 mcg tablet 200 mcg PO DAILY nystatin [Nystop] 100,000 unit/gram powder 1 applic topical TID levetiracetam 1,000 mg tablet 1,000 mg PO BID acetaminophen 325 mg tablet 650 mg PO Q6H PRN (Reason: pain) folic acid 1 mg tablet 1 mg PO DAILY loperamide 2 mg tablet 2 mg PO TID PRN (Reason: loose stool) sumatriptan succinate 100 mg tablet 100 mg PO UD sucralfate 1 gram tablet 1 g PO TID magnesium oxide 400 mg (241.3 mg magnesium) tablet 400 mg PO DAILY metformin 500 mg tablet extended release 24 hr 500 mg PO BID cyclosporine [Restasis] 0.05 % dropperette 1 drp ophthalmic (eye) Q12H Patient Comments: [NO ORIGINAL SIG] Rx Instructions: BOTH EYES nitroglycerin 0.4 mg tablet, sublingual 0.4 mg sublingual Q5M PRN (Reason: chest pain) Rx Instructions: do not exceed 3 doses per episode topiramate [Topamax] 50 mg tablet 50 mg PO BID furosemide 40 mg tablet 40 mg PO DAILY PRN (Reason: edema) albuterol sulfate 2.5 mg/0.5 mL solution for nebulization 2.5 mg inhalation Q4H PRN (Reason: shortness of breath or wheezing) Discontinued alprazolam 0.5 mg tablet 0.5 mg PO DAILY ibuprofen 800 mg tablet 800 mg PO TID PRN (Reason: pain) No Action insulin glargine U-300 conc [Toujeo SoloStar U-300 Insulin] 300 unit/mL (1.5 mL) insulin pen 44 unit subcut DAILY Referrals / Follow Up: Jomar Kellogg MD [Primary Care Provider] - Within 2 Weeks Himanshu Fuentes DO [Med Staff - Active Staff] - See Referral Note (In 3 weeks, call for appointment) Disposition Disposition (needs filled in before D/C Order can be placed): Home, Self Care
--- NOTE | 2024-06-05 12:37 | PCM.DC.SUM ---
Providers Date of Admission: 06/02/24 Date of Discharge: 06/05/24 Primary Care Physician: Dr. Jomar Kellogg MD Consultations 06/03/24 00:20 Consult: Onc/Wound/biofuels engineering manager Routine Comment: Reason for Consult:: Sacral Decubitus Ulcer. 06/03/24 00:22 Consult: Onc/Wound/biofuels engineering manager Routine Comment: 06/03/24 11:12 Consult: Gastroenterology Routine Consulting Provider: Debra Gastroentersergei Reason for Consult: gi bleed EMERGENT Consult: No MD Notified: Yes Date Notified: 06/03/24 Time Notified: 11:12 Method of Notification: Verbal Reason For Visit: GI BLEED FROM COLOSTOMY AND ACUTE CYSTITIS; WITH Diagnosis Discharge Diagnosis (1) Anemia: Status: Acute Code(s): D64.9 - Anemia, unspecified (2) Acute cystitis with hematuria: Status: Acute Code(s): N30.01 - Acute cystitis with hematuria Plan #1 GI bleed with bright red blood from colostomy site-etiology unclear, no evidence of bleeding was noted on the patient's colonoscopy, CBC will be repeated tomorrow #2 acute cystitis-patient had ESBL in her urine, it is sensitive to Augmentin so I changed the patient to oral Augmentin today #3 chronic stage IV sacral pressure injury-the wound nurse saw the patient today and states that the area does not look grossly infected, continue treatment per wound nurse #4 type 2 diabetes-blood sugars will be monitored, sliding scale insulin will be given as needed #5 erosive esophagitis Total clinical time spent by myself addressing the patient's medical issues, reviewing all of her data, and collaborating with patient's care team: 35-minutes Medications at Discharge Home Medications Lactobacillus acidophilus 1 billion cell capsule 1,000 mmu cells PO DAILY 06/02/24 acetaminophen 325 mg tablet 650 mg PO Q6H PRN pain 06/02/24 adalimumab 40 mg/0.4 mL subcutaneous pen kit (Humira(CF) Pen) 40 mg subcut Q14D 06/02/24 albuterol sulfate 2.5 mg/0.5 mL solution for nebulization 2.5 mg inhalation Q4H PRN shortness of breath or wheezing 06/02/24 albuterol sulfate 90 mcg/actuation aerosol inhaler 1 puff inhalation Q4H PRN shortness of breath or wheezing 06/02/24 amitriptyline 100 mg tablet 100 mg PO QHS 06/02/24 ascorbic acid (vitamin C) 500 mg tablet (Vitamin C) 500 mg PO DAILY 06/02/24 atorvastatin 80 mg tablet 80 mg PO DAILY 06/02/24 buprenorphine 10 mcg/hour weekly transdermal patch 1 patch topical TU 06/02/24 colestipol 1 gram tablet 2 g PO BID 06/02/24 cyclosporine 0.05 % eye drops in a dropperette (Restasis) 1 drp ophthalmic (eye) Q12H 06/02/24 epinephrine 0.3 mg/0.3 mL injection, auto-injector 0.3 mg IM PRN PRN anaphylaxis 06/02/24 ergocalciferol (vitamin D2) 1,250 mcg (50,000 unit) capsule 1,250 mcg PO TU 06/02/24 escitalopram oxalate 20 mg tablet 20 mg PO DAILY 06/02/24 famotidine 20 mg tablet 40 mg PO BID 06/02/24 fluticasone furoate 200 mcg-vilanterol 25 mcg/dose inhalation powder (Breo Ellipta) 1 ea inhalation DAILY 06/02/24 folic acid 1 mg tablet 1 mg PO DAILY 06/02/24 furosemide 40 mg tablet 40 mg PO DAILY PRN edema 06/02/24 insulin glargine U-300 conc 300 unit/mL (1.5 mL) subcutaneous pen (Toujeo SoloStar U-300 Insulin) 44 unit subcut DAILY 06/02/24 insulin lispro 100 unit/mL subcutaneous pen (Humalog KwikPen (U-100) Insulin) 1 sliding scale dose subcut TIDCM 06/02/24 levetiracetam 1,000 mg tablet 1,000 mg PO BID 06/02/24 levothyroxine 200 mcg tablet 200 mcg PO DAILY 06/02/24 lidocaine 5 % topical patch 1 patch topical DAILY 06/02/24 loperamide 2 mg tablet 2 mg PO TID PRN loose stool 06/02/24 magnesium oxide 400 mg (241.3 mg magnesium) tablet 400 mg PO DAILY 06/02/24 metformin 500 mg tablet,extended release 24 hr 500 mg PO BID 06/02/24 nitroglycerin 0.4 mg sublingual tablet 0.4 mg sublingual Q5M PRN chest pain 06/02/24 nystatin 100,000 unit/gram topical powder (Nystop) 1 applic topical TID 06/02/24 pantoprazole 40 mg tablet,delayed release 40 mg PO BID 06/02/24 pregabalin 225 mg capsule 225 mg PO TID 06/02/24 primidone 50 mg tablet 50 mg PO BID 06/02/24 promethazine 25 mg tablet 25 mg PO Q8H PRN nausea and vomiting 06/02/24 propranolol 10 mg tablet 10 mg PO DAILY 06/02/24 quetiapine 100 mg tablet 100 - 200 mg PO QHS 06/02/24 ropinirole 4 mg tablet 4 mg PO QHS 06/02/24 scopolamine base 1 mg over 3 days transdermal patch 1 patch topical Q3D 06/02/24 semaglutide 2 mg/dose (8 mg/3 mL) subcutaneous pen injector (Ozempic) 2 mg subcut TU 06/02/24 sucralfate 1 gram tablet 1 g PO TID 06/02/24 sumatriptan succinate 100 mg tablet 100 mg PO UD 06/02/24 tizanidine 4 mg tablet 4 mg PO 4X/DAY PRN muscle spasticity 06/02/24 topiramate 50 mg tablet (Topamax) 50 mg PO BID 06/02/24 alprazolam 1 mg tablet (Xanax) 1 mg PO BID #60 tabs 06/05/24 doxycycline monohydrate 100 mg tablet 100 mg PO BID #10 tabs 06/05/24 insulin glargine-yfgn 100 unit/mL (3 mL) subcutaneous pen 10 unit (0.1 mL) subcut DAILY #0 mL 06/05/24 oxycodone 10 mg tablet 10 mg PO Q4H PRN PRN pain 7 days #42 tabs 06/05/24 sodium hypochlorite 0.25 % solution (HySept) See Protocol topical BID #0 mL 06/05/24 Hospital Course Operations None Procedures Blood transfusion, Colonoscopy and EGD Summary of Care Provided Minutes Spent on Discharge: 32 Hospital Course: This 54-year-old white female presented to the emergency department at [facility] with a chief complaint of blood coming out of her colostomy. She stated that she was passing clots. Workup in the emergency room showed a normal white blood cell count, hemoglobin was 7.7, CHEM panel was remarkable for potassium 3.4 and the patient's urinalysis showed 500 leukocyte esterase with 50-100 white cells and +2 bacteria. Patient had a large wound over the her sacral area which had been chronic. General surgery was contacted by the emergency room physician and he recommended transfer of the patient to a tertiary hospital, [facility] Was contacted and accepted the patient for transfer but there were no beds available at the time to transfer the patient. Patient was admitted to PCU and placed on Zosyn and vancomycin, she was seen in consultation by gastroenterology and a wound care nurse. Patient's sacral decubitus pressure injury did not appear infected, an EGD and a colonoscopy was performed, erosive esophagitis was noted but there was no evidence of any bleeding in the colon although the colon prep was poor. Patient was transfused 1 unit of packed red blood cells, there was no evidence of bleeding from her colostomy site during her hospitalization. Urine culture grew out ESBL Klebsiella pneumoniae which was sensitive to Augmentin. On 06/05/2024, patient was seen and examined:alert, oriented x3, no apparent distress and healthy appearing General Appearance: cooperative, well kempt and well developed Orientation / Consciousness: awake, oriented to person, oriented to place and oriented to time HEENT normocephalic, head/scalp atraumatic and moist oral mucous membranes Eyes PERRL, EOMs intact bilaterally and conjunctivae normal Neck supple, no JVD, thyroid normal and no carotid bruits General: trachea midline Resp normal respiratory effort and clear to auscultation bilaterally Auscultation: Negative for rales, rhonchi or wheezes Cardio regular rate, regular rhythm, S1 normal heart sound, S2 normal heart sound, no murmurs, no rub and no gallops GI normal to inspection, nondistended, normoactive bowel sounds, soft to palpation, non-tender and non-distended Extremity Extremity Narrative: 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 Weight / BMI Weight Weight: 83.7 kg Body Mass Index (BMI) 28.9 ABG / Lab / Microbiology Data 06/05/24 07:01 06/03/24 04:10 Laboratory: Laboratory Results - last 24 hr 06/04/24 12:34: POC Glucose 63 L 06/04/24 18:39: POC Glucose 68 L 06/04/24 23:49: POC Glucose 84 06/05/24 05:56: POC Glucose 77 06/05/24 07:01: WBC 7.9, RBC 3.74 L, Hgb 8.7 L, Hct 28.8 L, MCV 77.0 L, MCH 23.3 L, MCHC 30.2 L, RDW Std Deviation 46.9 H, RDW Coeff of Gerardo 17.0 H, Plt Count 332, MPV 8.7, Immature Gran % (Auto) 1.000 H, Neut % (Auto) 61.6, Lymph % (Auto) 26.8, Collier % (Auto) 7.4, Eos % (Auto) 2.6, Baso % (Auto) 0.6, Absolute Neuts (auto) 4.9, Absolute Lymphs (auto) 2.13, Nucleated RBC % 0 06/05/24 07:08: POC Glucose 89 06/05/24 09:13: POC Glucose 86 Microbiology: Microbiology 06/03/24 07:00 Wound - Buttock Gram Stain - Final 06/03/24 07:00 Wound - Buttock Wound Culture - Final Strep anginosus Gram positive humaira Klebsiella pneumoniae sp pneum 06/02/24 17:40 Urine, Clean Catch Urine Culture - Final ESBL Klebsiella pneumoniae pne 06/02/24 15:32 Blood Culture (Wb) - Anticubital Right Blood Culture - Preliminary No growth in 48 hours. 06/02/24 15:32 Blood Culture (Wb) - Anticubital Left Blood Culture - Preliminary No growth in 48 hours. D/C Instructions Discharge Diet: 1800 Calorie Control Diet Weight Bearing Status: - (Resume previous activity level) DC O2, CPAP, BIPAP Needs Additional Home O2 Discharge instructions: No DC home with Oxygen: No Meaningful Use Info Meaningful Use Meaningful Use Diagnoses (Choose all that apply): None applicable Ischemic Stroke Statin Dosing Therapy Reference: STATIN DOSE THERAPY REFERENCE: * Patients > 75 years receive moderate or high dose statin therapy. * Patients 75 years or YOUNGER should receive HIGH intensity statin dose unless contraindicated. You will be required to document reason for non-treatment if statin daily dose does not meet guidelines. HIGH DOSE STATIN THERAPY DAILY Atorvastatin > than or = to 40 mg Rosuvastatin > than or = to 20 mg Amlodipine + Atorvastatin > than or = to 2.5/40 mg Ezetimibe + Simvastatin 10/80 mg Simvastatin 80mg Discharge Plan Admission Admit Date/Time: 06/02/24 23:05 Primary Reason for Your Visit: GI bleed requiring blood transfusion Attending Provider: Adriel Cornejo Primary Care Provider: Jomar Kellogg Consulting Providers: Emmanuel Graff Discharge Orders/Prescriptions Prescriptions: New HySept 0.25 % Solution See Protocol topical BID Qty: 0 0RF Protocol: *Topical Application Instructions APPLICATION INSTRUCTIONS: sacral wound insulin glargine-yfgn 100 unit/mL (3 mL) Insulin Pen 10 unit subcut DAILY Qty: 0 0RF alprazolam [Xanax] 1 mg tablet 1 mg PO BID Qty: 60 0RF oxycodone 10 mg tablet 10 mg PO Q4H PRN PRN (Reason: pain) 7 Days Qty: 42 0RF doxycycline monohydrate 100 mg tablet 100 mg PO BID Qty: 10 0RF Continued quetiapine 100 mg tablet 100 - 200 mg PO QHS escitalopram oxalate 20 mg tablet 20 mg PO DAILY propranolol 10 mg tablet 10 mg PO DAILY Ozempic 2 mg/dose (8 mg/3 mL) pen injector 2 mg subcut TU amitriptyline 100 mg tablet 100 mg PO QHS colestipol 1 gram tablet 2 g PO BID buprenorphine 10 mcg/hour patch weekly 1 patch topical TU lidocaine 5 % adhesive patch,medicated 1 patch topical DAILY pregabalin 225 mg capsule 225 mg PO TID tizanidine 4 mg tablet 4 mg PO 4X/DAY PRN (Reason: muscle spasticity) insulin lispro [Humalog KwikPen Insulin] 100 unit/mL insulin pen 1 sliding scale dose subcut TIDCM Protocol: 6. Sliding Scale Insulin Custom Condition: mg/dl range Dose/Route: Number of Units Condition: 151-200 Dose/Route: 2 Condition: 201-250 Dose/Route: 4 Condition: 251-300 Dose/Route: 6 Condition: 301-350 Dose/Route: 8 Condition: 351-400 Dose/Route: 10 Protocol Text: Custom Sliding Scale Rx Instructions: TAKE 12 UNITS WITH BREAKFAST, 10 UNITS WITH LUNCH, AND 12 UNITS WITH DINNER PLUS SLIDING SCALE. MAX DAILY DOSE 60 UNITS Lactobacillus acidophilus 1 billion cell capsule 1,000 mmu cells PO DAILY primidone 50 mg tablet 50 mg PO BID famotidine 20 mg tablet 40 mg PO BID pantoprazole 40 mg tablet,delayed release (DR/EC) 40 mg PO BID scopolamine base 1 mg over 3 days patch 3 day 1 patch topical Q3D atorvastatin 80 mg tablet 80 mg PO DAILY albuterol sulfate 90 mcg/actuation HFA aerosol inhaler 1 puff inhalation Q4H PRN (Reason: shortness of breath or wheezing) ropinirole 4 mg tablet 4 mg PO QHS Humira(CF) Pen 40 mg/0.4 mL pen injector kit 40 mg subcut Q14D ascorbic acid (vitamin C) [Vitamin C] 500 mg tablet 500 mg PO DAILY epinephrine 0.3 mg/0.3 mL auto-injector 0.3 mg IM PRN PRN (Reason: anaphylaxis) fluticasone furoate-vilanterol [Breo Ellipta] 200-25 mcg/dose blister with device 1 ea inhalation DAILY ergocalciferol (vitamin D2) 1,250 mcg (50,000 unit) capsule 1,250 mcg PO TU promethazine 25 mg tablet 25 mg PO Q8H PRN (Reason: nausea and vomiting) levothyroxine 200 mcg tablet 200 mcg PO DAILY nystatin [Nystop] 100,000 unit/gram powder 1 applic topical TID levetiracetam 1,000 mg tablet 1,000 mg PO BID acetaminophen 325 mg tablet 650 mg PO Q6H PRN (Reason: pain) folic acid 1 mg tablet 1 mg PO DAILY loperamide 2 mg tablet 2 mg PO TID PRN (Reason: loose stool) sumatriptan succinate 100 mg tablet 100 mg PO UD sucralfate 1 gram tablet 1 g PO TID magnesium oxide 400 mg (241.3 mg magnesium) tablet 400 mg PO DAILY metformin 500 mg tablet extended release 24 hr 500 mg PO BID cyclosporine [Restasis] 0.05 % dropperette 1 drp ophthalmic (eye) Q12H Patient Comments: [NO ORIGINAL SIG] Rx Instructions: BOTH EYES nitroglycerin 0.4 mg tablet, sublingual 0.4 mg sublingual Q5M PRN (Reason: chest pain) Rx Instructions: do not exceed 3 doses per episode topiramate [Topamax] 50 mg tablet 50 mg PO BID furosemide 40 mg tablet 40 mg PO DAILY PRN (Reason: edema) albuterol sulfate 2.5 mg/0.5 mL solution for nebulization 2.5 mg inhalation Q4H PRN (Reason: shortness of breath or wheezing) Discontinued alprazolam 0.5 mg tablet 0.5 mg PO DAILY ibuprofen 800 mg tablet 800 mg PO TID PRN (Reason: pain) No Action insulin glargine U-300 conc [Toujeo SoloStar U-300 Insulin] 300 unit/mL (1.5 mL) insulin pen 44 unit subcut DAILY Referrals / Follow Up: Jomar Kellogg MD [Primary Care Provider] - Within 2 Weeks Himanshu Fuentes DO [Med Staff - Active Staff] - See Referral Note (In 3 weeks, call for appointment) Disposition Disposition (needs filled in before D/C Order can be placed): Home Health Service Charges/Coding Visit Charges Inpatient E&M: 14638 Disch Hosp >30min
[2024-06-05 12:43] LABS: Bedside Glucose 73 mg/dL (74-106)
--- NOTE | 2024-06-05 12:45 | CASEMGMT ---
RN CM DRY BOSS CM?to room to meet with patient for initial transition planning/care coordination assessment. RN CM?introduced self and role at [facility]. Pt voices understanding and consents to assessment?at this time. Pt resting in bed in no distress at this time. Pt is A/O at this time and answers all questions appropriately. Care providers, pharmacy, and demographics verified/updated at this time. Strata:?2 PCP: Dr Kellogg Specialists: Dr Maharaj-pain mgnt @ [facility] in [place]. Dr Zapien- ortho @ [facility] in [place]. Goes to [facility] and sees BECCA Vital--next appt is in 3 weeks. Pt states she also goes to counseling. Preferred Pharmacy: [facility] @ discharge. Otherwise pt goes to [facility] Insurance: [facility] Tadeo Bajwa Dual, [facility] Prescription Benefit: Yes HCPOA: Pt states her brother, David Sloan, is her HCPOA and 1st alternative is her niece Kenia Sloan. Pt aware document is not on file @ [facility]. She states both David and Kenia have copies of these. LNOK: Pt's brother, David, is HCPOA. 1st alternative is niKenia armando. Pt is still legally ([place]). She states they have been for 34 years, but they have been for about 3 years. She has 2 adult children, ages 22 and 24. She states her adult children are not involved w/her either. Living Arrangements: Lives alone w/ramp entrance. HHC: Pt is active w/[facility], , who comes once a week. Pt has a waiver program, CM is Tammy Power ([phone]), has aides through [facility] for 2 hrs/day ([phone]). The aides do daily dressing changes on her wound. She states she has all needed supplies. THIERRY, Hortencia, made aware of waiver and CM. Pt states when aides are not there, she is able to be independent in the home and able to transfer self. She reports she has good friend and family support. Transportation: Pt states will need transportation home from the hospital. Rough Carpenter aware. DME: States has the following DME: pt has a shower chair, rails/grab bars, hospital bed, transfer board, W/C, Life Alert, functioning Ema CGM w/sufficient supplies. She states she has all insulin, needles, and medications needs. Pt has a chronic F/C and colostomy. She gets supplies via mail from [employer] and states has all needed supplies. Kaela RETANA, working on getting raised toilet seat. Pt would like a low air loss mattress and she denies having preference of DME co, verbal list provided, made aware [facility] [place] w[facility], and okay with [facility]. Pt states no need for further DME at this time. HHC/SNF: Has been to [facility]. Active w/[facility]. Pt would like to resume w/[facility], is happy with their care, and declines wanting list of other HHC options. Pt wishes to return home and states has no further concerns with going home at time of discharge. CM?to follow for any further discharge planning/needs. Pt voices no further concerns/needs at this time. Advised pt to ask for CM?if any further questions/concerns/needs arise. Voices understanding. PLAN: Home w/resumption of [facility], aides through [employer], and low air loss mattress. Corrine WEATHERS RN CM
--- NOTE | 2024-06-05 13:25 | PN.HOSP_ITS ---
Hospitalist Note Patient requires a [id number] mattress due to a large stage IV pressure injury to the sacral area
--- NOTE | 2024-06-05 13:25 | PCM.HOSP.N ---
Hospitalist Note Patient requires a [id number] mattress due to a large stage IV pressure injury to the sacral area
--- NOTE | 2024-06-05 13:31 | CASEMGMT ---
Discharge Planning HH resumption referral sent to [facility]. Earline Paiz DC Planning Asst.
--- NOTE | 2024-06-05 13:51 | CASEMGMT ---
RN CM NOTE: Script for low air-loss mattress obtained from Dr Hebert and [place] [facility], along w/physician note stating need for mattress. Corrine WEATHERS RN CM
[2024-06-05 15:42] VITALS: BP 140/77; PULSE 90; RESP 18; TEMP 36.1; O2SAT 95
[2024-06-05 17:37] LABS: Bedside Glucose 93 mg/dL (74-106)
== END 2024-06-05 19:05 | disposition home health service (06) | DRG 368 ==
LOC: ED 23:29 → PCU 06-03 00:07
PROVIDERS: Emergency Medicine; Internal Medicine Gastroenterology; Admitting Provider Internal Medicine; Emergency Provider Emergency Medicine; PCP Family Medicine; Visit Provider Internal Medicine
PROC: 0DJD8ZZ Inspection of Lower Intestinal Tract, Via Natural or Artificial Opening Endoscopic (ICD-10-PCS; CPT 45378; principal; 2024-06-04 16:10)
DX: K21.01 Gastro-esophageal reflux disease with esophagitis, with bleeding (principal); L89.154 Pressure ulcer of sacral region, stage 4; E87.20 Acidosis, unspecified; D62 Acute posthemorrhagic anemia; K50.919 Crohn's disease, unspecified, with unspecified complications; N30.01 Acute cystitis with hematuria; E11.622 Type 2 diabetes mellitus with other skin ulcer; D50.9 Iron deficiency anemia, unspecified; E03.9 Hypothyroidism, unspecified; E66.811 Obesity, class 1; G40.909 Epilepsy, unspecified, not intractable, without status epilepticus; I10 Essential (primary) hypertension; J45.909 Unspecified asthma, uncomplicated; G25.81 Restless legs syndrome; Z68.30 Body mass index [BMI] 30.0-30.9, adult; Z93.3 Colostomy status; E87.6 Hypokalemia; F41.8 Other specified anxiety disorders; E78.5 Hyperlipidemia, unspecified; Z79.4 Long term (current) use of insulin; M19.90 Unspecified osteoarthritis, unspecified site; M62.838 Other muscle spasm; G43.909 Migraine, unspecified, not intractable, without status migrainosus; Z79.51 Long term (current) use of inhaled steroids; Z79.2 Long term (current) use of antibiotics; T39.315A Adverse effect of propionic acid derivatives, initial encounter; Z79.890 Hormone replacement therapy; Z79.899 Other long term (current) drug therapy; Z79.84 Long term (current) use of oral hypoglycemic drugs; G89.29 Other chronic pain
CPT/HCPCS: 36415; 36569; 74177; 80053; 81001; 81025; 82962; 83036; 83605; 83735; 84100; 84443; 85025; 86850; 86900; 86901; 86920; 87040; 87070; 87077; 87086; 87088; 87186; 87205; 88305; 88312; 93005; 94640; 94668; 97802; 99285; J7040; J7050; P9016; Q9967; A4216; J2405